=== PATIENT | female | born 1960 | race Caucasian/White ===

== ENCOUNTER 2022-08-18 12:38 | Emergency (ER) | payer OTHER, SELFPAY ==
[2022-08-18 12:40] VITALS: BP 115/75; PULSE 85; RESP 18; TEMP 36.7; O2SAT 94; BMI 43.0
--- NOTE | 2022-08-18 13:13 | ED.NURSE ---
this marketing underwriter chaperoned MD as looking at the buttocks area of concern. no drainage noted from site and small hard area that is tender to patient.
--- NOTE | 2022-08-18 13:40 | ED_ITS ---
HPI - Skin/Abscess/Foreign Bdy General Date Seen: 08/18/22 Chief complaint: Skin/Abscess/Foreign Body Stated complaint: Abces on buttocks Time Seen by Provider: 08/18/22 12:44 Source: patient Mode of arrival: wheelchair Limitations: no limitations History of Present Illness HPI narrative: Patient is a really nice 61-year-old female who presents here with a spot on her left buttock, that is draining a little bit of blood. Had this now for approximately a week, she denies any fevers chills, there is no communication as far she knows with her rectal area. She is wondering if she might need antibiotics. She is COVID positive approximately a week ago her entire family came down with a, she just want her blood oxygen also checked. She otherwise feels fine with this with no problems with the chest pain shortness of breath or other issues. She is confined to wheelchair secondary to a musculoskeletal arthritis, in need for a joint replacements. Related Data Home Medications Medication Instructions Recorded Confirmed citalopram 40 mg tablet mg 08/18/22 trazodone 50 mg tablet mg 08/18/22 Allergies Allergy/AdvReac Type Severity Reaction Status Date / Time tramadol Allergy Mild itch Verified 08/18/22 12:47 Review of Systems Status of ROS: Reports: 6 or more systems reviewed and unremarkable except as noted in History and below [facility] Medical History CAD (coronary artery disease) Diabetes 1.5, managed as type 2 Fibromyalgia Osteoarthritis Social History Smoking Status: Current every day smoker What tobacco products do you use: cigarettes Smoking packs per day: 1 Smoking cigarettes per day: 20.0 Years smoked: 46 Smoking pack-years: 46.00 Do you use any of these nicotine containing products: None Second hand tobacco smoke exposure: No How often do you have a drink containing alcohol: never How often do you have six or more drinks on one occasion: Never AUDIT-C Alcohol total score: 0 Non-prescribed substance use: denies use service: No Exam Narrative: Exam Narrative: Very nice lady in no apparent distress, her vital signs are normal here. With the nurse Boom present we were able to get her to go on her right side, approximately 6 cm from her rectal or/anus there is an area of of furuncle, that is not draining any fluid. But there is a hole within it. I was unable to palpate any significant abscess with this. Around it, with no track going back to her rectal area. Const: Vital Signs, click to edit/add: Vital Signs - 24 hr 08/18/22 12:40 Temperature 98.1 F Pulse Rate [Left P ulse Oximeter] 85 Respiratory Rate 18 Blood Pressure [Le ft Upper Arm] 115/75 Pulse Oximetry 94 Oxygen Delivery Me thod Room Air Documenting provider has reviewed patient's vital signs: yes Course Vital Signs Vital signs: Initial Vital Signs Temperature 98.1 F 08/18/22 12:40 Temperature Source Temporal Artery Scan 08/18/22 12:40 Pulse Rate 85 08/18/22 12:40 Pulse Rhythm 08/18/22 12:40 Respiratory Rate 18 08/18/22 12:40 Blood Pressure 115/75 08/18/22 12:40 Blood Pressure Mean 88 08/18/22 12:40 Blood Pressure Position Sitting 08/18/22 12:40 Pulse Oximetry 94 08/18/22 12:40 Oxygen Delivery Method 08/18/22 12:40 Vital Signs Temperature 98.1 F 08/18/22 12:40 Pulse Rate 85 08/18/22 12:40 Respiratory Rate 18 08/18/22 12:40 Blood Pressure 115/75 08/18/22 12:40 Pulse Oximetry 94 08/18/22 12:40 Oxygen Delivery Method 08/18/22 12:40 Temperature 98.1 F 08/18/22 12:40 Pulse Rate 85 08/18/22 12:40 Respiratory Rate 18 08/18/22 12:40 Blood Pressure 115/75 08/18/22 12:40 Pulse Oximetry 94 08/18/22 12:40 Oxygen Delivery Method 08/18/22 12:40 MDM - Skin/Abscess/Foreign Bdy MDM Narrative Medical decision making narrative: I reviewed with the patient I do not think this is a perirectal abscess, with no communication I think this is a furuncle, there appears to be no collection of abscess and appears not to be cellulitic. I think we will however start her on Augmentin, twice daily for this, I will ask her to put some bacitracin on this and do some Sitz baths also. In regards to her COVID she seems to be doing quite well with this. But she is slightly nauseous and we will give her some Zofran. Differential Diagnosis Differential diagnosis: Likely abscess of skin or subcutaneous tissue, cellulitis, impetigo and contact dermatitis Medical Records Attestation: I reviewed the patient's medical records. Discharge Plan Discharge Clinical Impression: COVID-19, Furuncle, Nausea Patient Disposition: Home, Self-Care Condition: Stable Instructions: Abscess Follow-up (ED) Additional Instructions: I discussed with her that her COVID status is good with an excellent oxygen saturation, she does have a little furuncle on the left buttocks, there seems to be no evidence of abscess here, and there is some mild drainage. I think a reasonable approach here would be antibiotics, along with some nausea medicine. Sitz baths and warm water would be appropriate 3 times a day for the next little while. Report back here if increasing size of this area, anything that is plan supple, but at the present just follow this. Prescriptions given via [employer]. Augmentin 875 mg po bid and Zofran 4 mg Q8h prn Prescriptions: No Action citalopram 40 mg tablet Label Comments: TAKE 1 TABLET BY MOUTH DAILY trazodone 50 mg tablet Label Comments: TAKE 1 TO 2 TABLETS BY MOUTH DAILY AT BEDTIME Follow Up/Referrals: Provider,Not a Local [Primary Care Provider] - Stand Alone Forms: [employer] Info Instructions
== END 2022-08-18 13:57 | disposition home or self-care (01) ==
PROVIDERS: Emergency Provider Family Medicine
DX: L02.32 Furuncle of buttock (principal); U07.1 COVID-19
CPT/HCPCS: 99283

== ENCOUNTER 2022-08-22 11:38 | Emergency (ER) | payer OTHER, SELFPAY ==
[2022-08-22 12:25] VITALS: BP 133/82; PULSE 83; RESP 18; TEMP 36.7; O2SAT 92; BMI 40.2
--- NOTE | 2022-08-22 14:06 | ED_ITS ---
HPI - General Adult General Chief complaint: GI Bleed Stated complaint: Rectal bleeding/nausea/weakness Time Seen by Provider: 08/22/22 12:50 Source: patient Mode of arrival: ambulatory Limitations: no limitations History of Present Illness HPI narrative: 61-year-old female coming in today concerned about rectal bleeding. She states that for the last 4 days she has had bright red blood per rectum on and off thro ughout the day. She states that her rectum is leaking blood even when she does not go to the bathroom. She has blood through her pants. She describes it as a significant amount of blood. She denies feeling dizzy or lightheaded. No chest pain or shortness of breath. She is complaining of rectal pain. Pain is constant, nothing makes it better or worse. She denies any fevers or chills. No nausea or vomiting. Related Data Home Medications Medication Instructions Recorded Confirmed citalopram 40 mg tablet mg 08/18/22 trazodone 50 mg tablet mg 08/18/22 Previous Rx's Medication Instructions Recorded Keflex 1 tab PO TID 7 days #21 tabs 08/22/22 cephalexin 500 mg capsule 500 mg PO TID 7 days #21 caps 08/22/22 Allergies Allergy/AdvReac Type Severity Reaction Status Date / Time tramadol Allergy Mild itch Verified 08/18/22 12:47 Review of Systems Status of ROS: Reports: 10 or more systems reviewed and unremarkable except as noted in History and below [facility] Medical History CAD (coronary artery disease) Diabetes 1.5, managed as type 2 Fibromyalgia Osteoarthritis Social History Smoking Status: Current every day smoker What tobacco products do you use: cigarettes Smoking packs per day: 1 Smoking cigarettes per day: 20.0 Years smoked: 46 Smoking pack-years: 46.00 Do you use any of these nicotine containing products: None Second hand tobacco smoke exposure: No How often do you have a drink containing alcohol: never How often do you have six or more drinks on one occasion: Never AUDIT-C Alcohol total score: 0 Non-prescribed substance use: denies use service: No Exam Narrative: Exam Narrative: Obese, well-developed patient in no acute distress. Alert and oriented. Answers questions appropriately. Mood and affect are appropriate. Thoughts are goal oriented and rational. No tangential or magical thinking noted. Patient speaks in full sentences without needing to catch her breath. HEENT: Normocephalic atraumatic. Pupils are equally round reactive to light. Extraocular muscles are intact. Conjunctivae are moist without any icterus noted. Cardiovascular: Heart is regular rate and rhythm S1 and S2 are present without any murmurs. Lungs: Clear to auscultation bilaterally no wheezes rhonchi or rales are appreciated. Patient takes deep breaths without any discomfort. Abdomen: Protuberant and soft, nontender with normal bowel sounds. Rectal exam: Patient has a draining area of the left perirectal space that is draining sanguinous pus. The area has a central fluctuance with surrounding induration. I do not see any drainage extending to the anus. There is no tenderness at the anus. The perirectal abscess does not appear to extend to the inguinal canal. Const: Vital Signs, click to edit/add: Vital Signs - 24 hr 08/22/22 12:25 Temperature 98.0 F Pulse Rate [Right Pulse Oximeter] 83 Respiratory Rate 18 Blood Pressure [Ri ght Upper Arm] 133/82 Pulse Oximetry 92 Oxygen Delivery Me thod Room Air Course Course Hospital Course: The area was cleaned and anesthetized with lidocaine an 11 blade was used to puncture the area that was draining. Approximately 30 mL of sanguinous purulent drainage drained out. A Q-tip was used to break any pockets. The space was then packed. She tolerated the procedure well. I did consult with afterwards, she recommended some postop care and a surgical follow-up. Vital Signs Vital signs: Initial Vital Signs Temperature 98.0 F 08/22/22 12:25 Temperature Source Temporal Artery Scan 08/22/22 12:25 Pulse Rate 83 08/22/22 12:25 Respiratory Rate 18 08/22/22 12:25 Blood Pressure 133/82 08/22/22 12:25 Blood Pressure Mean 99 08/22/22 12:25 Blood Pressure Position Sitting 08/22/22 12:25 Pulse Oximetry 92 08/22/22 12:25 Oxygen Delivery Method 08/22/22 12:25 Vital Signs Temperature 98.0 F 08/22/22 12:25 Pulse Rate 83 08/22/22 12:25 Respiratory Rate 18 08/22/22 12:25 Blood Pressure 133/82 08/22/22 12:25 Pulse Oximetry 92 08/22/22 12:25 Oxygen Delivery Method 08/22/22 12:25 Temperature 98.0 F 08/22/22 12:25 Pulse Rate 83 08/22/22 12:25 Respiratory Rate 18 08/22/22 12:25 Blood Pressure 133/82 08/22/22 12:25 Pulse Oximetry 92 08/22/22 12:25 Oxygen Delivery Method 08/22/22 12:25 Medical Decision Making MDM Narrative Medical decision making narrative: Perineal abscess status post I&D in the ER. We discussed soaking a Sitz bath removing the packing tomorrow. Then soaking up to 3 times a day as needed. Patient will be placed on Keflex for the next week. She will have an appointment with surgery next Saturday. Return for to the ER for any complications. Medical Records Medical records reviewed: Yes I reviewed the patient's medical records Discharge Plan Discharge Clinical Impression: Abscess, perirectal Patient Disposition: Home, Self-Care Condition: Improved Additional Instructions: Okay to soak in a Sitz bath tomorrow and remove packing. No need to repack it. Take all antibiotics as prescribed. Follow-up with surgeon next Saturday. Okay to take ibuprofen or Tylenol as needed for discomfort. Prescriptions: New Keflex 500 mg 1 tab PO TID 7 Days Qty: 21 0RF cephalexin 500 mg capsule 500 mg PO TID 7 Days Qty: 21 0RF No Action citalopram 40 mg tablet Label Comments: TAKE 1 TABLET BY MOUTH DAILY trazodone 50 mg tablet Label Comments: TAKE 1 TO 2 TABLETS BY MOUTH DAILY AT BEDTIME Follow Up/Referrals: Provider,Not a Local [Primary Care Provider] - Stand Alone Forms: [employer] Info Instructions
--- NOTE | 2022-08-22 14:52 | PM.GSCN ---
History of Present Illness Consult details Date Seen: 08/22/22 Consult date: 08/22/22 Narrative: Patient presented to the emergency department with a four-day history of irritation at her buttock and bleeding. Initially she thought the bleeding was coming from her anus. She describes it is initially a significant amount of blood. The area is tender to the touch, but no significant pain. She has never had anything like this before. She denies any fevers or chills. She does have a history of type 2 diabetes and does not check her sugars regularly. She is not currently on insulin. She is an everyday smoker. Review of Systems Status of ROS: Reports: 10 or more systems reviewed and unremarkable except as noted in History and below [facility] Medical History CAD (coronary artery disease) Diabetes 1.5, managed as type 2 Fibromyalgia Osteoarthritis Social History Smoking Status: Current every day smoker What tobacco products do you use: cigarettes Smoking packs per day: 1 Smoking cigarettes per day: 20.0 Years smoked: 46 Smoking pack-years: 46.00 Do you use any of these nicotine containing products: None Second hand tobacco smoke exposure: No How often do you have a drink containing alcohol: never How often do you have six or more drinks on one occasion: Never AUDIT-C Alcohol total score: 0 Non-prescribed substance use: denies use service: No Meds Home Medications and Allergies Home Medications Medication Instructions Recorded Confirmed Type citalopram 40 mg tablet mg 08/18/22 History trazodone 50 mg tablet mg 08/18/22 History Allergies Allergy/AdvReac Type Severity Reaction Status Date / Time tramadol Allergy Mild itch Verified 08/18/22 12:47 Exam Narrative: Exam Narrative: General: Alert and oriented, no acute distress. Nontoxic. Respiratory: Equal breath sounds bilaterally, maintained on room air CV: Regular rhythm rate, well perfused Genitourinary: Left perianal buttock abscess with 1 cm incision and packing in place. No significant induration, some mild surrounding erythema. Nontender to palpation. No undrained fluid pockets appreciated. Const: Vital Signs, click to edit/add: Vital Signs - 24 hr 08/22/22 12:25 Temperature 98.0 F Pulse Rate [Right Pulse Oximeter] 83 Respiratory Rate 18 Blood Pressure [Ri ght Upper Arm] 133/82 Pulse Oximetry 92 Oxygen Delivery Me thod Room Air Results Labs Labs: All other labs normal. Assessment and Plan Assessment and plan (1) Perianal abscess: Status: Acute Plan Patient is a 61-year-old female with evidence of a drained perianal abscess. There does appear to have been adequate drainage at the bedside with appropriate packing in place. Recommend that the patient soak in a bathtub and remove the packing tomorrow. No need to repack. Recommend that she continue with Sitz baths t.i.d. for comfort. She will be prescribed a 7 day course of Keflex, which is reasonable given her history of type 2 diabetes and the surrounding erythema present. I also recommended to the patient that she check her sugars 3 times daily and maintain blood sugars less than 150. Will plan to follow up with the patient next week in clinic to assess for adequate healing. She was instructed to call the clinic or be seen in the emergency department should she develop any increasing pain, fever chills.
--- NOTE | 2022-08-22 19:58 | ED.NURSE ---
entered pt chart - pt called for antibiotic rx question, questions answered.
== END 2022-08-22 17:02 | disposition home or self-care (01) ==
LOC: ED 14:41
PROVIDERS: Emergency Provider Family Medicine
DX: K61.1 Rectal abscess (principal)
CPT/HCPCS: 10060; 99282; 99284

== ENCOUNTER 2023-05-27 13:02 | Emergency (ER) | payer OTHER, SELFPAY ==
[2023-05-27 13:27] VITALS: BP 118/69; PULSE 93; RESP 18; TEMP 36.5; O2SAT 98; BMI 45.7
--- NOTE | 2023-05-27 16:50 | ED_ITS ---
HPI - General Adult General Date Seen: 05/27/23 Chief complaint: Abdominal Pain Stated complaint: Upper abdominal/back pain Time Seen by Provider: 05/27/23 16:32 Source: patient Mode of arrival: wheelchair Limitations: no limitations History of Present Illness HPI narrative: Patient is a 62-year-old woman with underlying diabetes, recently started on Trulicity. For the past 8 days she says she has been having upper abdominal pain with radiation to both sides of the abdomen as well as to the back. She says this is mild arm less she eats, at which time it gets much more significant. She says she feels immediately full. She has not had any vomiting or diarrhea, she has had trouble with constipation lately but says that as long as she eats apples and broccoli she has been doing okay as far as that is concerned. She denies fever. She has not had difficulty breathing or cough. She denies urinary symptoms. She has no history of gastritis or peptic ulcer disease, does not take significant nonsteroidals and does not drink. Her dose of Trulicity was increased a couple of weeks ago and she is concerned that the Trulicity may be causing these symptoms. She notes that she did develop some nausea and constipation when she 1st started taking Trulicity and she has read the side effects to include abdominal pain and pancreatitis. She is status post appendectomy, denies other surgeries. She does smoke cigarettes. Here today with her Related Data Home Medications Medication Instructions Recorded Confirmed citalopram 40 mg tablet mg 08/18/22 05/16/23 trazodone 50 mg tablet mg 08/18/22 05/16/23 dulaglutide 1.5 mg/0.5 mL 1.5 mg subcut QWEEK 05/09/23 05/16/23 subcutaneous pen injector (Trulicity) glipizide 10 mg tablet 10 mg PO QDAY 05/09/23 05/16/23 Allergies Allergy/AdvReac Type Severity Reaction Status Date / Time tramadol Allergy Mild itch Verified 05/27/23 17:41 Review of Systems Status of ROS: Reports: 10 or more systems reviewed and unremarkable except as noted in History and below [facility] Medical History CAD (coronary artery disease) ?I25.10 - Atherosclerotic heart disease of [place] coronary artery without angina pectoris (ICD-10) Fibromyalgia ?M79.7 - Fibromyalgia (ICD-10) Osteoarthritis ?M19.90 - Unspecified osteoarthritis, unspecified site (ICD-10) Diabetes 1.5, managed as type 2 ?E13.9 - Other specified diabetes mellitus without complications (ICD-10) Social History Smoking Status: Current every day smoker What tobacco products do you use: cigarettes Smoking packs per day: 1 Smoking cigarettes per day: 20.0 Years smoked: 46 Smoking pack-years: 46.00 Do you use any of these nicotine containing products: None Second hand tobacco smoke exposure: No How often do you have a drink containing alcohol: never How often do you have six or more drinks on one occasion: Never AUDIT-C Alcohol total score: 0 Non-prescribed substance use: denies use service: No Exam Narrative: Exam Narrative: Vital signs as noted above. In general, an alert, well-appearing patient. Head: Normocephalic, atraumatic. Eyes: Pupils are equal reactive. Extraocular movements are full. Conjunctivae are normal. ENT: Mucous membranes are moist. Throat is normal. Neck: Supple without lymphadenopathy. Heart: Regular rate and rhythm. No murmur or rub. Lungs: Clear bilaterally. No increased work of breathing, crackles or wheezes. Abdomen: Soft and nondistended. Mild upper abdominal tenderness without rebound guarding or rigidity. Negative Rivera's. Obese. Extremities: Well perfused. No edema. No calf tenderness. Pulses intact. Neurologic: Patient is alert and oriented to person and place. Speech is fluent. Face is symmetric. Moves all extremities equally. Affect: Normal. Skin: Warm and dry. Well perfused. Const: Vital Signs, click to edit/add: Vital Signs - 24 hr 05/27/23 13:27 05/27/23 17:10 05/27/23 18:51 Temperature 97.7 F Pulse Rate [Right Pulse Oximeter] 93 84 89 Respiratory Rate 18 Blood Pressure [Ri ght Upper Arm] 118/69 126/68 119/53 L Pulse Oximetry 98 94 94 Oxygen Delivery Me thod Room Air Room Air Room Air Documenting provider has reviewed patient's vital signs: yes Course Course Hospital Course: I looked with the bedside ultrasound, the gallbladder wall appears normal, I do not see obvious stones. She does not have tenderness over her gallbladder specifically. EKG and labs are pending. She declines the need for anything for pain or nausea. Diagnostic considerations include peptic ulcer disease, gastritis, pancreatitis, cholecystitis, biliary colic, gastroparesis among others. Labs are relatively unremarkable. White blood cell count is mildly elevated at 13 and CRP is mildly elevated at 5.2 but lactate is normal, hemoglobin is 16.3. Electrolytes are within normal limits, LFTs normal, lipase notably normal at 154. Troponin was 0, EKG by my review showed normal sinus rhythm, ventricular rate of 82 beats per minute without acute ST segment changes or other significant findings. CT scan by my review showed a little inflammation near the head of the pancreas, but lipase again is normal, with symptoms for a little over a week. Radiology read this as follows:IMPRESSION: Subtle periappendiceal inflammatory stranding about the pancreatic head/uncinate process. And 2nd portion of the duodenum. Differential includes acute uncomplicated pancreatitis or possible duodenitis. Recommend correlation with lipase. No drainable fluid collections. Given this, I think the most likely diagnosis is duodenitis or peptic ulcer disease. I have recommended that we try a course of omeprazole, primary care follow-up in the coming week for re-evaluation, and return to the ER for worsening such as severe pain, vomiting blood, black or bloody stools etc.. She is comfortable with that plan. I think pancreatitis is less likely given the normal lipase. Gastroparesis would be an additional consideration depending on how she responds to omeprazole. Vital Signs Vital signs: Initial Vital Signs Temperature 97.7 F 05/27/23 13:27 Temperature Source Temporal Artery Scan 05/27/23 13:27 Pulse Rate 93 05/27/23 13:27 Pulse Rhythm Regular 05/27/23 13:27 Pulse Strength 3+ Normal 05/27/23 13:27 Respiratory Rate 18 05/27/23 13:27 Blood Pressure 118/69 05/27/23 13:27 Blood Pressure Mean 85 05/27/23 13:27 Blood Pressure Position Sitting 05/27/23 13:27 Pulse Oximetry 98 05/27/23 13:27 Oxygen Delivery Method Room Air 05/27/23 13:27 Vital Signs Temperature 97.7 F 05/27/23 13:27 Pulse Rate 93 05/27/23 13:27 Respiratory Rate 18 05/27/23 13:27 Blood Pressure 118/69 05/27/23 13:27 Pulse Oximetry 98 05/27/23 13:27 Oxygen Delivery Method Room Air 05/27/23 13:27 Temperature 97.7 F 05/27/23 13:27 Pulse Rate 89 05/27/23 18:51 Respiratory Rate 18 05/27/23 13:27 Blood Pressure 119/53 L 05/27/23 18:51 Pulse Oximetry 94 05/27/23 18:51 Oxygen Delivery Method Room Air 05/27/23 18:51 Medical Decision Making Lab Data Labs: Lab Results 05/27/23 Range/Units 17:05 WBC 13.15 H (4.50-11.00) K/uL RBC 5.33 H (4.00-5.20) m/uL Hgb 16.3 H (12.0-16.0) gm/dL Hct 47.6 (33.0-51.0) % MCV 89 (80-100) fL MCH 31 (26-34) pg MCHC 34 (32-36) gm/dL RDW Coeff of Sudheer 12.8 (11.5-15.5) % Plt Count 272 (140-440) K/uL Neut % (Auto) 68.8 (42.0-72.0) % Lymph % (Auto) 22.7 (20-44) % [place] % (Auto) 6.2 (0.0-11.0) % Eos % (Auto) 1.7 (0.0-7.0) % Baso % (Auto) 0.2 (0.0-3.0) % Neut # (Auto) 9.00 H (1.7-7.0) K/uL Lymph # (Auto) 3.00 H (0.90-2.90) K/uL [place] # (Auto) 0.80 (0.00-0.90) K/UL Eos # (Auto) 0.20 (0.00-0.50) K/uL Baso # (Auto) 0.00 (0.00-0.30) K/uL Sodium 137 (135-149) mmol/L Potassium 3.6 (3.6-5.1) mmol/L Chloride 103 (96-114) mmol/L Carbon Dioxide 25 (20-32) mmol/L BUN 8 (7-30) mg/dL Creatinine 0.6 (0.5-1.5) mg/dL Estimated Creat Clear 45.54 Estimated GFR 101 ml/min Glucose 87 (60-115) mg/dL Lactate 0.9 (0.5-1.9) mmol/L Calcium 9.3 (8.4-10.6) mg/dL Total Bilirubin 0.5 (0.1-1.5) mg/dL Direct Bilirubin 0.1 (0.0-0.5) mg/dL AST 19 (12-35) U/L ALT 20 (4-35) U/L Alkaline Phosphatase 101 (40-150) U/L C-Reactive Protein 5.2 H (0.5-1.0) mg/dL Total Protein 7.9 (6.0-8.3) g/dL Albumin 4.3 (3.3-5.0) g/dL Lipase 154 (23-300) U/L POC Troponin I 0.00 L (0.01-0.04) ng/ml Discharge Plan Discharge Clinical Impression: Duodenitis Patient Disposition: Home, Self-Care Condition: Stable Instructions: Duodenitis (ED) Additional Instructions: Omeprazole 40 mg daily. Primary care follow-up within the next week or so for recheck. If you have acute worsening such as severe pain, vomiting blood, black or bloody stools, return to the emergency department right away. Prescriptions: No Action glipizide 10 mg tablet 10 mg PO QDAY Trulicity 1.5 mg/0.5 mL pen injector 1.5 mg subcut QWEEK citalopram 40 mg tablet Patient Comments: TAKE 1 TABLET BY MOUTH DAILY trazodone 50 mg tablet Patient Comments: TAKE 1 TO 2 TABLETS BY MOUTH DAILY AT BEDTIME Follow Up/Referrals: Provider,Not a Local [Primary Care Provider] - Stand Alone Forms: [employer] Info Instructions
--- NOTE | 2023-05-27 16:50 | CRLHL7_ITS ---
For Patients: As a result of the Century Cures Act, medical imaging exams and procedure reports are released immediately into your electronic medical record. You may view this report before your referring provider. If you have questions, please contact your health care provider. INDICATION: Upper abdominal pain. TECHNIQUE: CT abdomen and pelvis acquired with 122 cc Isovue 370 IV contrast. COMPARISON: None. FINDINGS: Lower chest: Scattered atelectasis. Liver: Unremarkable. Normal in size and attenuation. No suspicious masses. Gallbladder and bile ducts: Unremarkable. No stones or inflammation. No biliary dilatation. Pancreas: Fatty atrophy. Subtle periappendiceal inflammatory stranding about the pancreatic head and uncinate process. Spleen: Unremarkable. Normal in size. No masses. Adrenal glands: Unremarkable. No nodules. Kidneys: Unremarkable. No suspicious masses, stones, or hydronephrosis. GI tract: Colonic diverticulosis. No bowel obstruction. Appendectomy Vasculature: Moderate aortoiliac arterial calcifications. Abdominal aorta is normal in caliber. Mesenteric arteries are patent. Lymph nodes: No lymphadenopathy. Peritoneum/Abdominal Wall: Small fat containing umbilical hernia. No sign of mass or infiltration. No free air or significant free fluid. Pelvis: Unremarkable. Bones: Unremarkable for age. IMPRESSION: Subtle periappendiceal inflammatory stranding about the pancreatic head/uncinate process. And 2nd portion of the duodenum. Differential includes acute uncomplicated pancreatitis or possible duodenitis. Recommend correlation with lipase. No drainable fluid collections. Otherwise, no acute intra-abdominal/pelvic abnormality. Please note that all CT scans at this facility use dose modulation, iterative reconstruction, and/or weight-based dosing when appropriate to reduce radiation dose to as low as reasonably achievable. Dictated by Sung Siu MD @ 05/27/2023 6:57:01 PM (Electronically Signed)
[2023-05-27 17:10] VITALS: BP 126/68; PULSE 84; O2SAT 94
[2023-05-27 17:17] LABS: Lactate* 0.9 mmol/L (0.5-1.9)
[2023-05-27 17:18] LABS: Basophils Percent Auto 0.2 % (0.0-3.0); Eosinophils Percent Auto 1.7 % (0.0-7.0); Hematocrit 47.6 % (33.0-51.0); Hemoglobin* 16.3 gm/dL (12.0-16.0); Immature Granulocytes Pct Auto 0.4 %; Lymphocytes Percent Auto 22.7 % (20-44); Mean Corpuscular HGB Conc 34 gm/dL (32-36); Mean Corpuscular Hemoglobin 31 pg (26-34); Mean Corpuscular Volume 89 fL (80-100); Monocytes Percent Auto 6.2 % (0.0-11.0); Neutrophils Percent Auto 68.8 % (42.0-72.0); Platelet Count* 272 K/uL (140-440); RDW Coefficient of Variation % 12.8 % (11.5-15.5); Red Blood Count 5.33 m/uL (4.00-5.20); White Blood Count* 13.15 K/uL (4.50-11.00)
[2023-05-27 17:30] LABS: Slide Review Reflex No
[2023-05-27 17:33] LABS: Albumin* 4.3 g/dL (3.3-5.0); Chloride* 103 mmol/L (96-114); Sodium* 137 mmol/L (135-149)
[2023-05-27 17:34] LABS: Potassium* 3.6 mmol/L (3.6-5.1)
[2023-05-27 17:35] LABS: Creatinine* 0.6 mg/dL (0.5-1.5); Est. Creatinine Clearance* 45.54; Estimated Glomerular Filt Rate 101 ml/min
[2023-05-27 17:36] LABS: Alanine Aminotransferase* 20 U/L (4-35); Alkaline Phosphatase* 101 U/L (40-150); Aspartate Amino Transferase* 19 U/L (12-35); Bilirubin Direct* 0.1 mg/dL (0.0-0.5); Bilirubin Total* 0.5 mg/dL (0.1-1.5); Blood Urea Nitrogen* 8 mg/dL (7-30); Carbon Dioxide* 25 mmol/L (20-32); Glucose* 87 mg/dL (60-115); Lipase* 154 U/L (23-300); Total Protein* 7.9 g/dL (6.0-8.3)
[2023-05-27 17:37] LABS: Calcium* 9.3 mg/dL (8.4-10.6)
[2023-05-27 17:39] LABS: C Reactive Protein* 5.2 mg/dL (0.5-1.0)
[2023-05-27 18:51] VITALS: BP 119/53; PULSE 89; O2SAT 94
== END 2023-05-27 19:51 | disposition home or self-care (01) ==
PROVIDERS: Emergency Provider Emergency Medicine
DX: K29.80 Duodenitis without bleeding (principal)
CPT/HCPCS: 36415; 74177; 80048; 80076; 83605; 83690; 84484; 85025; 86140; 93005; 99283; 99284; 99285; Q9967

== ENCOUNTER 2024-08-03 12:03 | Emergency (ER) | payer OTHER, SELFPAY ==
[2024-08-03 12:07] VITALS: BP 134/75; PULSE 95; RESP 18; TEMP 36.9; O2SAT 96; BMI 44.3
--- NOTE | 2024-08-03 12:24 | CRLHL7_ITS ---
For Patients: As a result of the Century Cures Act, medical imaging exams and procedure reports are released immediately into your electronic medical record. You may view this report before your referring provider. If you have questions, please contact your health care provider. Indication: Rectal pain with bowel movement Technique: CT Abdomen/Pelvis W/ 137CC ISOVUE-370 Please note that all CT scans at this facility use dose modulation, iterative reconstruction, and/or weight-based dosing when appropriate to reduce radiation dose to as low as reasonably achievable. Comparison: 05/27/2023 Findings: There is a circumscribed collection of fluid and air in the perianal space measuring 3 cm, best appreciated on the additional more inferior axial images of the perianal soft tissues. Mild sigmoid diverticulosis. No diverticulitis. No evidence of bowel obstruction. The appendix is absent. Fat filled umbilical hernia measures 3.6 cm. Bladder normal. Unremarkable uterus and ovaries. Atherosclerotic changes. Adrenal glands are normal. Normal kidneys. Spleen normal. Pancreatic atrophy. Fatty liver. Gallbladder normal. Lung bases clear. Multilevel degenerative disc disease and facet degeneration rightward curvature of the lumbar spine. Degenerative joint disease both hips. The liver measures 19.2 cm. Impression: 3 cm perianal abscess. Sigmoid diverticulosis. No diverticulitis. Hepatomegaly and hepatic steatosis. Please note that all CT scans at this facility use dose modulation, iterative reconstruction, and/or weight-based dosing when appropriate to reduce radiation dose to as low as reasonably achievable. Dictated by Edil Lofton MD @ 08/03/2024 1:21:30 PM (Electronically Signed)
--- NOTE | 2024-08-03 12:26 | ED_ITS ---
HPI - General Adult General Chief complaint: Urogenital Problems, Female Stated complaint: Abdominal pain, gastric pressure Time Seen by Provider: 08/03/24 12:19 History of Present Illness HPI narrative: Patient is a 63-year-old woman with history of perirectal abscess who comes in after approximately 4-5 days of diarrhea and fever with pain anterior to her anus. She has had no rectal discharge. She has no dysuria. The fever and diarrhea has resolved she has no further abdominal pain. She previously had a her perirectal abscess lanced a number of years ago. Patient is in a wheelchair secondary to severe osteoarthritis. She takes no anticoagulants or antiplatelet agents. Patient now feels like her symptoms have resolved with the exception of the excruciating pain as described above. Related Data Home Medications ?Medication ?Instructions ?Recorded ?Confirmed citalopram 40 mg tablet mg 08/18/22 12/10/23 trazodone 50 mg tablet mg 08/18/22 12/10/23 dulaglutide 1.5 mg/0.5 mL 1.5 mg subcut QWEEK 05/09/23 12/10/23 subcutaneous pen injector (Trulicity) glipizide 10 mg tablet 10 mg PO QDAY 05/09/23 12/10/23 cetirizine 10 mg tablet 10 mg PO DAILY 08/03/24 08/03/24 glipizide 5 mg tablet, extended PO 08/03/24 release 24 hr (Glucotrol XL) rosuvastatin 40 mg tablet 40 mg PO DAILY 08/03/24 08/03/24 Allergies Allergy/AdvReac Type Severity Reaction Status Date / Time tramadol Allergy Mild itch Verified 08/03/24 12:13 Review of Systems Status of ROS: Reports: 10 or more systems reviewed and unremarkable except as noted in History and below [facility] Medical History CAD (coronary artery disease) ?I25.10 - Atherosclerotic heart disease of craig coronary artery without angina pectoris (ICD-10) Fibromyalgia ?M79.7 - Fibromyalgia (ICD-10) Osteoarthritis ?M19.90 - Unspecified osteoarthritis, unspecified site (ICD-10) Diabetes 1.5, managed as type 2 ?E13.9 - Other specified diabetes mellitus without complications (ICD-10) Surgical History S/P ?Z98.891 - History of uterine scar from previous surgery (ICD-10) S/P appendectomy ?Z90.49 - Acquired absence of other specified parts of digestive tract (ICD- 10) Social History Smoking Status: Current every day smoker What tobacco products do you use: cigarettes Smoking packs per day: 1 Smoking cigarettes per day: 20.0 Years smoked: 46 Smoking pack-years: 46.00 Do you use any of these nicotine containing products: None Second hand tobacco smoke exposure: No How often do you have a drink containing alcohol: never How often do you have six or more drinks on one occasion: Never AUDIT-C Alcohol total score: 0 Non-prescribed substance use: denies use service: No Exam Narrative: Exam Narrative: EXAM GENERAL: Patient appears comfortable and well. Patient is overweight. EYES: No scleral icterus. LYMPH: No supraclavicular or cervical lymphadenopathy. SKIN: Visible skin seen during exam normal or with benign process only. EXT: No dependent lower extremity pedal edema. HEART: Regular rate and rhythm with no murmurs, rubs, or gallops. LUNGS: Clear to auscultation bilaterally with no crackles or wheezes. ABD: Soft, non tender, non distended. PSYCH: Good eye contact, speech is not pressured. Rectal exam performed tenderness and diffuse fullness although flat in the anterior aspect of her anus. Const: Vital Signs, click to edit/add: Vital Signs - 24 hr 08/03/24 12:07 Temperature 98.5 F Pulse Rate [Right Pulse Oximeter] 95 Respiratory Rate 18 Blood Pressure [Ri ght Upper Arm] 134/75 Pulse Oximetry 96 Oxygen Delivery Me thod Room Air Course Course ED Course: CBC CMP UA CT abdomen pelvis ordered. Vital Signs Vital signs: Initial Vital Signs Temperature 98.5 F 08/03/24 12:07 Temperature Source Temporal Artery Scan 08/03/24 12:07 Pulse Rate 95 08/03/24 12:07 Pulse Rhythm Regular 08/03/24 12:07 Respiratory Rate 18 08/03/24 12:07 Blood Pressure 134/75 08/03/24 12:07 Blood Pressure Mean 94 08/03/24 12:07 Blood Pressure Position Sitting 08/03/24 12:07 Pulse Oximetry 96 08/03/24 12:07 Oxygen Delivery Method Room Air 08/03/24 12:07 Vital Signs Temperature 98.5 F 08/03/24 12:07 Pulse Rate 95 08/03/24 12:07 Respiratory Rate 18 08/03/24 12:07 Blood Pressure 134/75 08/03/24 12:07 Pulse Oximetry 96 08/03/24 12:07 Oxygen Delivery Method Room Air 08/03/24 12:07 Temperature 98.5 F 08/03/24 12:07 Pulse Rate 95 08/03/24 12:07 Respiratory Rate 18 08/03/24 12:07 Blood Pressure 134/75 08/03/24 12:07 Pulse Oximetry 96 08/03/24 12:07 Oxygen Delivery Method Room Air 08/03/24 12:07 Medical Decision Making MDM Narrative Medical decision making narrative: CT abdomen pelvis shows a 3 mm perianal abscess. She does have leukocytosis but no other significant findings UA still pending. Surgical consultation requested. Surgery was able to drain the abscess. Patient tolerated procedure well. At this time patient will be discharged home on Augmentin stool softeners rest and fluids with General surgery follow-up. Lab Data Labs: Lab Results 08/03/24 08/03/24 08/03/24 Range/Units 12:35 12:41 13:18 WBC 12.88 H (4.50-11.00) K/uL RBC 5.19 (4.00-5.20) m/uL Hgb 15.9 (12.0-16.0) gm/dL Hct 46.6 (33.0-51.0) % MCV 90 (80-100) fL MCH 31 (26-34) pg MCHC 34 (32-36) gm/dL RDW Coeff of Sudheer 12.0 (11.5-15.5) % Plt Count 272 (140-440) K/uL Neut % (Auto) 72.2 H (42.0-72.0) % Lymph % (Auto) 19.5 L (20-44) % [place] % (Auto) 6.1 (0.0-11.0) % Eos % (Auto) 0.8 (0.0-7.0) % Baso % (Auto) 0.2 (0.0-3.0) % Neut # (Auto) 9.30 H (1.7-7.0) K/uL Lymph # (Auto) 2.50 (0.90-2.90) K/uL [place] # (Auto) 0.80 (0.00-0.90) K/UL Eos # (Auto) 0.10 (0.00-0.50) K/uL Baso # (Auto) 0.00 (0.00-0.30) K/uL Abs Immat Gran (auto) 0.20 (0.00-0.30) K/uL Imm/Tot Granulo (auto) 1.2 % Sodium 132 L (135-149) mmol/L Potassium 4.1 (3.6-5.1) mmol/L Chloride 100 (96-114) mmol/L Carbon Dioxide 25 (20-32) mmol/L Anion Gap 7 (7-15) mEq/L BUN 13 (7-30) mg/dL Creatinine 0.6 (0.5-1.5) mg/dL Estimated Creat Clear 47.01 Estimated GFR 100 ml/min Glucose 301 H (60-115) mg/dL Calcium 10.0 (8.4-10.6) mg/dL Total Bilirubin 0.4 (0.1-1.5) mg/dL AST 23 (12-35) U/L ALT 24 (4-35) U/L Alkaline Phosphatase 119 (40-150) U/L Total Protein 7.8 (6.0-8.3) g/dL Albumin 4.4 (3.3-5.0) g/dL Urine Color Yellow (Yellow) Urine Appearance Clear (Clear) Urine pH 5.5 (5.0-8.5) Ur Specific [place] 1.015 (1.000-1.030) Urine Protein Negative (Negative) Urine Glucose (UA) 2+ A (Negative) Urine Ketones Trace A (Negative) Urine Blood Negative (Negative) Urine Nitrite Negative (Negative) Urine Bilirubin Negative (Negative) Urine Urobilinogen 0.2 (0.2-1.0) Ur Leukocyte Esterase Negative (Negative) POC Creatinine 0.6 (0.6-1.3) mg/dl Discharge Plan Discharge Clinical Impression: Abscess, perianal Patient Disposition: Home, Self-Care Condition: Stable Instructions: Rectal Abscess (ED) Additional Instructions: Stool softening Sitz baths Augmentin as directed [place] as directed Follow-up with General surgery in 1 week. Activity Level: No Restrictions Discharge Diet: Regular Prescriptions: No Action glipizide 10 mg tablet 10 mg PO QDAY Trulicity 1.5 mg/0.5 mL pen injector 1.5 mg subcut QWEEK citalopram 40 mg tablet Patient Comments: TAKE 1 TABLET BY MOUTH DAILY trazodone 50 mg tablet Patient Comments: TAKE 1 TO 2 TABLETS BY MOUTH DAILY AT BEDTIME cetirizine 10 mg tablet 10 mg PO DAILY glipizide [Glucotrol XL] 5 mg tablet extended release 24hr PO rosuvastatin 40 mg tablet 40 mg PO DAILY Follow Up/Referrals: Provider,Not a Local [Primary Care Provider] - Stand Alone Forms: MyHealth Info Instructions
[2024-08-03 12:42] LABS: Creatinine, Point-of-Care* 0.6 mg/dl (0.6-1.3)
[2024-08-03 12:47] LABS: Basophils Percent Auto 0.2 % (0.0-3.0); Eosinophils Percent Auto 0.8 % (0.0-7.0); Hematocrit 46.6 % (33.0-51.0); Hemoglobin* 15.9 gm/dL (12.0-16.0); Immature Granulocytes Pct Auto 1.2 %; Lymphocytes Percent Auto 19.5 % (20-44); Mean Corpuscular HGB Conc 34 gm/dL (32-36); Mean Corpuscular Hemoglobin 31 pg (26-34); Mean Corpuscular Volume 90 fL (80-100); Monocytes Percent Auto 6.1 % (0.0-11.0); Neutrophils Percent Auto 72.2 % (42.0-72.0); Platelet Count* 272 K/uL (140-440); Red Blood Count 5.19 m/uL (4.00-5.20); White Blood Count* 12.88 K/uL (4.50-11.00)
--- OUTSIDE RECORDS SUMMARY | 2024-08-03 12:49 | XMS_ITS | Encounter Summary ---
Author Organization [employer] Address [address] [place] [address] Care Team Providers Care Medical Dermatologist Name Role Phone Miriam Montanez MD Primary Care Provider [phone] Reason for Visit * Reason Comments Prior Authorization For Medication semag lutide-weight management (WEGOVY) 0.25 MG/0.5ML pen injection Encounter Details Date Type Department Care Team (Late st Contact Info) Description 07/29/2024 Telephone [facility] [id number] [place] [address] [place] [address] [place], [place] [phone] Prior Authorization For Medication (semaglutide-weight management (WEGOVY) 0.25 MG/0.5ML pen injection) Social History Tobacco Use Types Packs/Day Years Used Date Smoking Tobacco: Every Day Cigarettes 1 48.3 Started: 04/28/1976 Smokeless Tobacco: Never Comments:Smoking History Pac ks/day: 1 pack Alcohol Use Standard Drinks/Week Comments No 0 (1 standard drink = 0.6 oz pur e alcohol) PHQ-2 Answer Date Recorded PHQ-2 Score 1 07/21/2024 Hunger Vital Sign Answer Date Recorded Within the past 12 months, y ou worried that your food would run out before you got the money to buy more. Never true 07/20/20 24 Within the past 12 months, t he food you bought just didn't last and you didn't have money to get more. Never true 07/20/2024 PRAPARE - Transportation Answer Date Re corded In the past 12 months, has l ack of transportation kept you from medical appointments or from getting medications? No 07/02 In the past 12 months, has l ack of transportation kept you from meetings, work, or from getting things needed for daily living? No 07/20/2024 Housing Stability Vital Sign Answer Bobby e Recorded In the last 12 months, was t here a time when you were not able to pay the mortgage or rent on time? No 07/20/2024 In the past 12 months, how m any times have you moved where you were living? 0 07/20/2024 At any time in the past 12 m [facility], were you homeless or living in a retirement (including now)? No 07/20/2024 Sex and Gender Information Value Date Recorded Sex Assigned at Not on file Gender Identity Not on file Sexual Orientation Not on file documented as of this encounter Nursing Notes * Marcella Quinonez LPN - 07/29/2024 10:50 AM CDT Prior authorization has been initiated for semaglutide-weight management (WEGOVY) 0.25 MG/0.5ML peninjection . documented in this encounter Plan of Treatment Upcoming Encounters Date Type Department Care Team (Late st Contact Info) Description 08/11/2024 3:00 PM CDT Appointment [facility] [address] [place] [address] 10/21/2024 2:30 PM [employer] Appointment [facility] [address] [place] [address] Miriam Montanez MD [address] [place] [address] [place] [address] 10/26/2024 1:45 PM [employer] Appointment Rheumatology at [facility] [address] [place] [address] Paulo Krishna MD [facility] [place], [place] [id number] 12/09/2024 1:50 PM [employer] Appointment [facility] [address] [facility] [facility] [place], [place] [phone] Dunia Lua MD [address] [place] [phone] documented as of this encounter Goals Goal Patient Goal Type Associated Problems Recent Progress Patient-Stated? Author Activity Diabetes Education No Sagrario Wagner, CRISTAL, LD, CDCES Note: 20 minutes activity daily documented as of this encounter Visit Diagnoses Not on filedocumented in this encounter Care Teams Medical Dermatologist Relationship Specialty Start Date End Date [place]iam [place] [id number] [place] [address] [place] Luu [address] PCP - General Family Practice 06/26/21 documented as of this encounter
--- OUTSIDE RECORDS SUMMARY | 2024-08-03 12:49 | XMS_ITS | Clinical Summary ---
[facility] Address [address], [place] [address] Care Team Providers Care Weaver Needle Loom Name Role Phone Miriam Montanez MD Primary Care Provider [phone] Source Comments You are receiving this document as you are listed as the primary care provider,follow-up provider, or the patient has been referred to you for consultation.This is in compliance with the Medicare and[facility] Health[employer] EHR Incentive Program,which states Providers who transition their patient to another setting of careor provider of care or refers their patient to another provider of care shouldprovide summary care record for each transition of care or referral. [facility] Allergies Active Allergy Reactions Criticality Noted Date Comments Diclofenac Sodium Hives High 02/10/2020 Broke out after putting gel on her Knee Gabapentin Headache Medium 05/30/2009 Metformin Other, see comments Medium 09/03/2018 Left sided abdominal pain Solifenacin Nausea Medium 02/03/2016 Topiramate Other, see comments Medium 06/26/2017 Pins and needle sensation, confusion Tramadol Itching Medium 04/03/2017 itching Medications Medication Sig Dispensed Refills Start Date End Date Status tiZANidine (ZANAFLEX) 2 MG tablet Take 1-2 Tablets by mouth at bedtime as needed (muscle spasms). 60 Tablet 3 11/20/20 21 Active Blood Glucose Monitoring Suppl (BLOOD GLUCOSE METER KIT)Indications:U ncontrolled type 2 diabetes mellitus with hyperglycemia (HRC) Use as directed. 1 Kit 02/13/20 23 Active omeprazole (PRILOSEC) 20 MG capsule Take 1 Capsule (20 mg) by mouth two times a day. Started at [facility] For duodenitis Active celecoxib (CELEBREX) 200 MG capsule TAKE 1 CAPSULE(200 MG) BY MOUTH EVERY 24 HOURS NEEDED FOR PAIN 90 Capsule 3 07/01/20 23 Active mupirocin (BACTROBAN) 2 % ointmentIndicatio ns:Carbuncle and furuncle of leg Apply topically two times a day. 30 g 2 10/29/20 23 Active pimecrolimus (ELIDEL) 1 % cream Apply topically two times a day. to affected areas as directed 30 g 07/21/20 24 Active semaglutide-weigh t management (WEGOVY) 0.25 MG/0.5ML pen injectionIndicati ons:Uncontrolled type 2 diabetes mellitus with hyperglycemia (C),BMI 45.0-49.9, adult ([facility]) Inject 0.5 mL (0.25 mg) subcutaneously once a week for 28 days. 2 mL 07/21/20 24 024 Active semaglutide-weigh t management (WEGOVY) 0.5 MG/0.5ML pen injectionIndicati ons:Uncontrolled type 2 diabetes mellitus with hyperglycemia (HRC),BMI 45.0-49.9, adult ([facility]) Inject 0.5 mL (0.5 mg) subcutaneously once a week for 28 days. Do not start before August 18, 2024. 2 mL 08/18/20 24 024 Active semaglutide-weigh t management (WEGOVY) 1 MG/0.5ML pen injectionIndicati ons:Uncontrolled type 2 diabetes mellitus with hyperglycemia (HRC),BMI 45.0-49.9, adult ([facility]) Inject 0.5 mL (1 mg) subcutaneously once a week for 28 days. Do not start before September 15, 2024. 2 mL 09/15/20 24 024 Active semaglutide-weigh t management (WEGOVY) 1.7 MG/0.75ML pen injectionIndicati ons:Uncontrolled type 2 diabetes mellitus with hyperglycemia (HRC),BMI 45.0-49.9, adult ([facility]) Inject 0.75 mL (1.7 mg) subcutaneously once a week for 28 days. Do not start before October 13, 2024. 3 mL 10/13/20 24 024 Active semaglutide-weigh t management (WEGOVY) 2.4 MG/0.75ML pen injectionIndicati ons:Uncontrolled type 2 diabetes mellitus with hyperglycemia (HRC),BMI 45.0-49.9, adult ([facility]) Inject 0.75 mL (2.4 mg) subcutaneously once a week. Do not start before November 10, 2024. 9.75 mL 3 11/10/20 24 025 Active citalopram (CELEXA) 40 MG tabletIndications :Agoraphobia with panic disorder (HRC) Take 1 Tablet (40 mg) by mouth daily. 90 Tablet 07/21/20 24 Active traZODone (DESYREL) 50 MG tabletIndications :Chronic insomnia Take 1-2 Tablets (50-100 mg) by mouth daily at bedtime. 180 Tablet 07/21/20 24 Active cetirizine (ZYRTEC) 10 MG tabletIndications :Photosensitivity dermatitis Take 1 Tablet (10 mg) by mouth daily. 90 Tablet 3 07/21/20 24 Active blood glucose test stripIndications: Uncontrolled type 2 diabetes mellitus with hyperglycemia (HRC) Use 1 Each to test three times a day. 100 Strip 07/21/20 24 Active glipiZIDE XL (GLUCOTROL XL) 5 MG 24 hour release tabletIndications :Uncontrolled type 2 diabetes mellitus with hyperglycemia (HRC) Take 2 Tablets (10 mg) by mouth daily. 180 Tablet 3 07/21/20 24 025 Active lancetsIndication s:Uncontrolled type 2 diabetes mellitus with hyperglycemia (HRC) Use 1 Each to test three times a day. 100 Each 07/21/20 24 Active rosuvastatin (CRESTOR) 40 MG tablet Take 1 Tablet (40 mg) by mouth daily. 90 Tablet 07/21/20 24 025 Active blood glucose test stripIndications: Uncontrolled type 2 diabetes mellitus with hyperglycemia (HRC) Use 1 Each to test three times a day. 100 Strip 11 02/13/20 23 024 Discontinued(*M ed change OR same med OR reorder, new dose/directions ) lancetsIndication s:Uncontrolled type 2 diabetes mellitus with hyperglycemia (HRC) Use 1 Each to test three times a day. 100 Each 11 02/13/20 024 Discontinued(*M ed change OR same med OR reorder, new dose/directions ) dulaglutide (TRULICITY) 1.5 MG/0.5ML injection penIndications:Un controlled type 2 diabetes mellitus with hyperglycemia (HRC) Inject 1.5 mg subcutaneously once a week. 6 mL 3 08/02/20 024 Discontinued glipiZIDE XL (GLUCOTROL XL) 5 MG 24 hour release tabletIndications :Uncontrolled type 2 diabetes mellitus with hyperglycemia (HRC) Take 2 Tablets (10 mg) by mouth daily. 180 Tablet 3 10/29/20 024 Discontinued(*M ed change OR same med OR reorder, new dose/directions ) cetirizine (ZYRTEC) 10 MG tabletIndications :Photosensitivity dermatitis Take 1 Tablet (10 mg) by mouth daily. 90 Tablet 3 10/29/20 024 Discontinued(*M ed change OR same med OR reorder, new dose/directions ) traZODone (DESYREL) 50 MG tabletIndications :Chronic insomnia Take 1-2 Tablets (50-100 mg) by mouth daily at bedtime. 180 Tablet 3 10/29/20 024 Discontinued(*M ed change OR same med OR reorder, new dose/directions ) rosuvastatin (CRESTOR) 40 MG tablet Take 1 Tablet (40 mg) by mouth daily. 90 Tablet 3 10/30/20 024 Discontinued(*M ed change OR same med OR reorder, new dose/directions ) citalopram (CELEXA) 40 MG tabletIndications :Agoraphobia with panic disorder (HRC) TAKE 1 TABLET(40 MG) BY MOUTH DAILY 90 Tablet 3 12/30/19 024 Discontinued(*M ed change OR same med OR reorder, new dose/directions ) pimecrolimus (ELIDEL) 1 % cream Apply topically two times a day. to affected areas as directed 30 g 02/25/20 024 Discontinued(*M ed change OR same med OR reorder, new dose/directions ) Active Problems Problem Noted Date Diagnosed Date Uncontrolled type 2 diabetes mellitus with hyper glycemia 03/12/2023 Intraductal papilloma 12/13/2022 Overview (12/13/2022): Added automatically from request for surgery [id number] Polycythemia 08/03/2021 Obstructive sleep apnea on CPAP 11/09/2018 Overview (11/09/2018): Setting: APAP 5-15 Supplied by: [facility] PSG done: 09/24/18 HST AHI 14 RDI - Lowest O2 Sat: 79% Mary Carmen/Compa 11/05/18 new Elevated coronary artery calcium score 8 Chronic midline low back pain without sciatica 0 07/02/2018 Scoliosis 07/02/2018 HLD (hyperlipidemia) 05/14/2018 Overview (05/14/2018): CVD risk calculated at 5.92 % as of 05/14/2018 Vitamin D deficiency 03/31/2018 Fibromyalgia 12/26/2016 Weakness of both lower extremities 12/26/2016 Hirsutism 02/23/2016 Primary osteoarthritis of both knees 10/12/2015 Urinary incontinence, urge 02/11/2015 BMI 45.0-49.9, adult 02/01/2015 Tobacco abuse 08/31/2013 Encounter for long-term (cur rent) use of non-steroidal anti-inflammatories 08/31/2013 Meralgia paresthetica 10/26/2008 Resolved Problems Problem Noted Date Diagnosed Date Resolved Date Class 3 severe obesity due t o excess calories with body mass index (BMI) of 45.0 to 49.9 in adult 09/11/2018 07/21/2024 Morbid obesity due to excess calories 12/26/2016 11/08/2017 Morbid obesity due to excess calories 01/16/2016 02/23/2016 Acute appendicitis with localized peritonitis 03/14/20 15 02/23/2016 Gross hematuria 02/11/2015 11/08/2017 Leg cramps 09/20/2014 02/23/2016 Leg edema 12/07/2013 02/23/2016 Morbid obesity 11/13/2011 02/01/2015 Osteoarthrosis involving lower leg 05/30/2009 05/17/2021 Overview (07/24/2017): LW Modifier: right, mild by outside x-ray PF joint ; DJD Knee Myalgia 10/26/2008 05/17/2021 Overview (07/24/2017): Fibromyalgia Major depressive disorder, r ecurrent episode, in full remission 02/07/2004 2013 Overview (07/24/2017): LW Onset: [id number] ; Depression Major Recurrent Full Remissio Agoraphobia with panic disorder 02/07/2004 05/17/2021 Overview (02/17/2020): LW Onset: 54Sin37 ; Panic Disorder w Agoraphobia Patient deneis agoraphonbia , but has panic disorder Encounters Date Type Department Care Team Description 07/29/[address] [address] Miriam Montanez MD Prior Authorization For Medication (semaglutide-weight management (WEGOVY) 0.25 MG/0.5ML pen injection) 07/23/[address] [address] Miriam Montanez MD Prior Authorization Request 07/21/2024 12:10 PM CDT Lab Visit [facility] [address] [place] [address] Uncontrolled type 2 diabetes mellitus with hyperglycemia (HRC) 07/21/2024 11:30 AM CDT Office Visit [address] [address] Miriam Montanez MD Uncontrolled type 2 diabetes mellitus with hyperglycemia (HRC) (Primary Dx); Agoraphobia with panic disorder (HRC); Chronic insomnia; Photosensitivity dermatitis; Tobacco abuse (HRC); Hyperlipidemia, unspecified hyperlipidemia type (HRC); BMI 45.0-49.9, adult (HRC) 07/20/2024 2:15 PM CDT Office Visit Rheumatology at [facility] [address] [place] [address] Paulo Krishna MD Primary osteoarthritis of both knees (Primary Dx); Fibromyalgia; Class 3 severe obesity due to excess calories without serious comorbidity with body mass index (BMI) of 50.0 to 59.9 in adult (HRC); Carpal tunnel syndrome, left 07/10/2024 E-Visit [facility] [address] [facility] [address] [place] [address] Mychart, Generic Provider 07/06/2024 Telephone Gastroenterology at [facility] at [address] [place] [address] Olga Brooks MD NURSE PREP FOR PROCEDURE 07/06/2024 E-Visit Gastroenterology at [address] [place] [address] Mychart, Generic Provider 07/06/2024 Notes/Orders Gastroenterology at [address] [place] [address] Olga Brooks MD from Last 3 Months Immunizations Name Administration Dates Next Due Flu Vac (3+ yrs) 09/19/2013 Flu Vac Preserv Free (3+yrs) 09/15/2013, 08/13/2012,09/12/2011,2009,09/14/2010,08/16/2009,09/15/2008,1 H1n1 Miv Sanofi 3+ Yr (Injected) 11/22/2009 HepB Adult (Engerix-B, 20+ y rs, 3 dose series) 02/10/2020 Influenza (Flucelvax), Prese rv Free QIV 10/14/2023 Influenza IIV4 (Quadrivalent ) 0.5mL ([id number]) 09/05/2022,08/21/2021,08/10/2020,2018,09/03/2018,01/01/2018,07/18/2016,1 12/12/2014,09/20/2014 Influenza, Unspecified Formulation 08/27,09/14/2010,08/16/2009,2007,09/23/2007,09/22/2003 Moderna Monovalent 12+ 04/13/2021,03/15/2021 PCV20 ([id number]) 10/29/2023 PPSV23 (Pneumovax) 05/14/2018 Pfizer 12+ 10/29/2023 TDAP (BOOSTRIX) 11/26/2012 Td 06/28/2003,04/29/1997 Tdap 10/29/2023 Zoster RZV (Shingrix) 08/10/2020,02/10/2020 Family History Medical History Relation Name Comments Alzheimer's Father [place] Dementia Father [place] Depression Father [place] Heart Disease Father [place] CABG High Cholesterol Father [place] Heart Disease Mother Maydelle AAA High Blood Pressure Mother Maydelle High Cholesterol Mother Maydelle Heart Disease Brother 1 Velasquez CABG Mental Disorder Brother 2 Depression Brother 3 Alfonso Cancer Maternal Aunt Mayuri Waterman Cancer Maternal Grandmother Jacki colon c a Cancer, Colon Maternal Grandmother Echeverria Cancer Maternal Uncle 1 Jimi Smith Stroke Maternal Uncle 2 Vernon Alzheimer's Paternal Grandmother Chuyita Dementia Paternal Grandmother Chuyita Heart Disease Paternal Grandmother Chuyita Cancer, Breast Negative Family History Cancer, Ovary Negative Family History Relation Name Status Comments Father [place] Mother Maydelle Alive Brother 1 Velasquez Alive Brother 2 Alive Brother 3 Alfonso Maternal Aunt Mayuri Waterman Maternal Grandfather Maternal Grandmother Echeverria Maternal Uncle 1 Jimi Smith Maternal Uncle 2 Vernon Paternal Grandfather Paternal Grandmother Chuyita Sister Alive Social History Tobacco Use Types Packs/Day Years Used Date Smoking Tobacco: Every Day Cigarettes 1 48.3 Started: 04/28/1976 Smokeless Tobacco: Never Tobacco Cessation:Ready to Q uit: Not Asked; Counseling Given: Not Answered Comments:Smoking History Packs/day: 1 pack Alcohol Use Standard Drinks/Week Comments [...] any time in the past 12 m [facility], were you homeless or living in a retirement (including now)? No 07/20/2024 Sex and Gender Information Value Date Recorded Sex Assigned at Not on file Gender Identity Not on file Sexual Orientation Not on file Last Filed Vital Signs Vital Sign Reading Time Taken Comments Blood Pressure 113/65 07/21/2024 11:30 AM CDT Pulse 79 07/21/2024 11:30 AM CDT Temperature 36.4 ??C (97.5 ??F) 10/14/2023 1:42 PM CS T Respiratory Rate 18 01/22/2023 6:30 PM [employer] Oxygen Saturation 92% 01/22/2023 6:30 PM [employer] Inhaled Oxygen Concentration - - Weight 117.9 kg (260 lb) 07/21/2024 11:30 AM CDT pt reported Height 157.5 cm (5' 2) 04/26/2023 2:14 PM CDT Body Mass Index 47.55 04/26/2023 2:14 PM CDT Plan of Treatment Upcoming Encounters Date Type Department Care Team (Late st Contact Info) Description 08/11/2024 3:00 PM CDT Appointment [facility] [id number] [place] [address] 10/21/2024 2:30 PM [employer] Appointment [facility] [id number] [place] [address] [place] [address] [place] [address] 10/26/2024 1:45 PM [employer] Appointment Rheumatology at [facility] [place] [address] [facility] [address] [place], [place] [phone] Paulo Krishna MD [address] [place], [place] [phone] 12/09/2024 1:50 PM [employer] Appointment [facility] Endoscopy [address] [facility]. [place], [place] [id number] Dunia Lua MD [address] [place] [phone] Health Maintenance Due Date Last Done Comments HepB (2) 03/09/2020 02/10/2020 Lung Cancer Screening 03/13/2024 03/13/2023 (Completed), 10/15/2018, 01/17/2017, Additional history exists Cervical Cancer Screening 04/22/20242018, 02/01/2015, 2013, Additional history exists Colonoscopy 07/12/2024 07/12/2021, 05/02, 01/29/2011, Additional history exists Influenza (#1) 2024 10/14/2023, 1004/2022, 08/21/2021, Additional history exists Diabetes: HGBA1C 10/21/2024 07/21/2024, , 10/29/2023, Additional history exists Adult Preventive Visit 10/29/2024 , 04/22/2019, 11/06/2017 Diabetes: Creatinine 10/29/2024 10/29/2023, 01/09/2023, 08/02/2021, Additional history exists Diabetes: Foot Exam 10/29/2024 10/29/2023 Mammogram 04/15/2025 04/15/2024, 01/03 (Completed), 10/10/2022, Additional history exists Diabetes: Eye Exam 06/15/2025 06/15/2024 (C ompleted), 08/02/2020 Diabetes: Urine Microalbumin 07/21/2025 07/21/2024, 08/02/2021, 02/10/2020 Diabetes: Lipid Panel 02/18/2029 02/19/2024 , 10/29/2023, 05/13/2023, Additional history exists DTaP/Tdap/Td (3 - Tdap) 10/29/2033 10/29/20 23, 11/26/2012, 06/28/2003, Additional history exists HIV Screening (Preventive Services) Completed 05/14/2018 Hep C Screening (Preventive Services) Completed 05/14/2018 Zoster/Shingles Completed 08/10/2020, 02/10/2020 COVID-19 Vaccine Completed 10/29/2023, , 03/15/2021 Pneumococcal Completed 10/29/2023, 05/14/2018 HepA Aged Out No longer eligi ble based on patient's age to complete this topic Hib Aged Out No longer eligi ble based on patient's age to complete this topic IPV (Polio) Aged Out No longer eligi ble based on patient's age to complete this topic MCV4 Aged Out No longer eligi ble based on patient's age to complete this topic Goals Goal Patient Goal Type Associated Problems Recent Progress Patient-Stated? Author Activity Diabetes Education No Sagrario Wagner RDN, LD, CDCES Note: 20 minutes activity daily Procedures Procedure Name Priority Date/Time Associated Diagnosis Comments ALBUMIN/CREAT RATIO Routine 07/21/2024 1 2:35 PM CDT Uncontrolled type 2 diabetes mellitus with hyperglycemia (HRC) HGB A1C Routine 07/21/2024 12:22 PM CDT Uncontrolled type 2 diabetes mellitus with hyperglycemia (HRC) MM MAMMOGRAM SCREENING BILAT W 3D ZANE W CAD Routine 04/15/2024 1:04 PM CDT LIPID PANEL & DIRECT LDL (IF NEEDED) Routine 02/19/2024 1:09 PM CDT Hyperlipidemia, unspecified hyperlipidemia type (HRC) CREATININE / GFR Routine 10/29/2023 12:5 0 PM [employer]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 non-steroidal anti-inflammatories (NSAID) ENDOSCOPY, COLON, SCREENING/DIAGNOSTI C Routine 07/12/2021 4:05 PM CDT Screen for colon cancer YASMEEN (DIABETIC EYE EXAM) 08/02/2020 PAP TEST Routine 04/22/2019 11:14 AM CDT Pap smear for cervical cancer screening CT CHEST WO IV CONT LUNG SCREENING Routine 10/15/2018 10:48 AM [employer] Cigarette smoker HIV-1 P24 AND HIV-1/HIV-2 ANTIBODIES Routine 05/14/2018 12:54 PM CDT Numbness and tingling in both hands Tingling of right arm and right side of face HEPATITIS C ANTIBODY, WITH REFLEX Routine 05/14/2018 12:54 PM CDT Numbness and tingling in both hands Tingling of right arm and right side of face from Last 3 Months or Most Recently Relevant to Health Maintenance Results * Albumin/Creatinine Ratio,Random Urine (07/21/2024 12:35 PM CDT) Albumin/Creati nine Ratio, Urine, Random 6 <30 mg/g 07/21/2024 1:40 PM CDT [facility] Albumin, Urine, Random 10.0 mg/L 07/21/2024 1:40 PM CDT [facility] Creatinine, Urine, Random 174 >20 mg/dL mg/dL 07/21/2024 1:40 PM CDT [facility] Urine Non-blood Collection / Unknown 07/21/2024 12:35 PM CDT 07/21/2024 12:35 PM CDT Miriam Montanez MD LAB_1 Performing Organization Address [facility] Co de Phone Number [facility] [address] [place] [address] * (ABNORMAL) Hgb A1C (07/21/2024 12:22 PM CDT) Hemoglobin A1C (Rapid) 10.3(H) <=5.6 % 07/21/2024 12:47 PM CDT [facility] Estimated Average Glucose (Calc) 249 < 117 mg/dL 07/21/2024 12:47 PM CDT [facility] Comment:Estimated average gl ucose (eAG) converts A1c into glucose units (mg/dL) and estimates average glucose over the past approximately 3 months. The eAG reference interval (<117 mg/dL) corresponds to an A1c of <5.7%. Blood Venipuncture / Unknown 07/21/2024 12:22 PM CDT 07/21/2024 12:22 PM CDT Narrative [facility] - 07/21/2024 12:47 PM CDT For patients not previously diagnosed with diabetes: 5.7-6.4%: Increased risk for diabetes 6.5% and greater: Diagnostic for diabetes For patients diagnosed with diabetes: <8.0%: Goal of therapy for ages 18-75 Clinicians may recommend a higher or lower goal for specific individuals. The test method used for this Hemoglobin A1c result can experience interference from elevated hemoglobin and other hemoglobin variants. In patients with results that do not correlate clinically, contact the lab for further direction. Miriam Montanez MD LAB_1 Performing Organization Address [facility] Co de Phone Number [facility] [address] [place] [address] * MM Mammogram Screening Bilat W 3D Zane W CAD (04/15/2024 1:04 PM CDT) Anatomical Region Laterality Modality Breast Bilateral Mammography Impressions 04/15/2024 1:53 PM CDT : ACR BI-RADS Category 2: Benign RECOMMENDATION: Follow Up Imaging in 12 months - Bilateral The results and recommendations of this examination will be communicated to the patient. Narrative 04/15/2024 1:53 PM CDT MM MAMMOGRAM SCREENING BILAT W 3D ZANE W CAD performed on 04/15/24 Compared to: 10/10/2022 MM Mammogram Screening Bilat W 3D Zane W CAD, 03/09/2021 MM Mammogram Screening Bilat W 3D Zane W CAD, and 06/25/2018 MM Mammogram Screening Bilat W CAD ?? FINDINGS: Bilateral screening mammogram was performed with the assistance of Computer-Aided Detection and breast tomosynthesis. The breasts have scattered areas of fibroglandular density. There are breast conservation changes on the left. There is no radiographic evidence of malignancy. ?? Miriam oMntanez MD [facility] * (ABNORMAL) Lipid Panel & Direct LDL (if Needed) (02/19/2024 1:09 PM CDT) Cholesterol 226(H) 0 - 199 mg/dL 02/19/2024 4:57 PM T [facility] Triglyceride 240(H) <=149 mg/dL 02/19/2024 4:57 PM [facility] HDL Cholesterol 41 >=40 mg/dL 4 4:57 PM [facility] LDL, Calculated 137(H) <130 mg/dL 4 4:57 PM [facility] Non HDL Chol, Calculated 185(H) <=159 mg/dL 02/19/2024 4:57 PM [facility] Cholesterol/HDL Ratio 5.5(H) <=5.0 02/19/2024 4:57 PM [facility] Hours Fasting 6.0 8 - 12 Hours 02/19/2024 4:57 PM [facility] Blood Venipuncture / Unknown 02/19/2024 1:09 PM CDT 02/19/2024 1:09 PM CDT Miriam Montanez MD LAB_1 [facility] [address] [place] [address], [facility] * Creatinine / GFR (10/29/2023 12:50 PM [employer]) Creatinine 0.80 0.55 - 1.02 mg/dL 10/29/2023 5:24 PM [employer] [facility] GFR, Estimated >60 >60 mL/min/1.7 3m2 10/29/2023 5:24 PM [employer] [facility] Blood Venipuncture / Unknown 10/29/2023 12:50 PM [employer] 10/29/2023 12:50 PM [employer] Paulo Krishna MD LAB_1 [facility] [address] [place] [address], [facility] [phone] * Endoscopy, colon, diagnostic (07/12/2021 4:05 PM CDT) 07/12/2021 4:05 PM CDT Narrative GI ([facility]) - 07/12/2021 4:05 PM CDT Patient Name: Susy Navas Procedure Date: 07/12/2021 4:05 PM Date of : 1960 Admit Type: Outpatient Age: 60 Gender: Female Note Status: Finalized Attending MD: Oliverio Sandoval , Procedure: ? Colonoscopy Indications: ? Surveillance: Personal history of ? adenomatous polyps on last ? colonoscopy 5 years ago Providers: ? Marleni Alexandre RN Referring MD: ? Medicines: ? Midazolam 3 mg IV, Fentanyl 100 ? micrograms IV Complications: ? No immediate complications. Procedure: ? Pre-Anesthesia Assessment: ? - Prior to the procedure, a History ? and Physical was performed, and ? patient medications, allergies and ? sensitivities were reviewed. The ? patient's tolerance of previous ? anesthesia was reviewed. ? - The risks and benefits of the ? procedure and the sedation options ? and risks were discussed with the ? patient. All questions were answered ? and informed consent was obtained. ? After I obtained informed consent, ? the scope was passed under direct ? vision. Throughout the procedure, the ? patient's blood pressure, pulse, and ? oxygen saturations were monitored ? continuously. The [id number] was ? introduced through the anus and ? advanced to the terminal ileum, with ? identification of the appendiceal ? orifice and IC valve. The ? [id number] was introduced through ? the and advanced to. The colonoscopy ? was performed without difficulty. The ? patient tolerated the procedure well. ? The quality of the bowel preparation ? was good. Findings: ? Scattered small-mouthed diverticula were found in the ? sigmoid colon. ? Two sessile polyps were found in the recto-sigmoid ? colon. The polyps were 4 to 7 mm in size. These ? polyps were removed with a cold snare. Resection and ? retrieval were complete. ? A 2 mm polyp was found in the transverse colon. The ? polyp was sessile. The polyp was removed with a cold ? biopsy forceps. Resection and retrieval were complete. ? A 10 mm polyp was found in the cecum. The polyp was ? sessile. The polyp was removed with a hot snare. ? Resection and retrieval were complete. ? The terminal ileum appeared normal. Moderate Sedation: ? Moderate (conscious) sedation was administered by the ? endoscopy nurse and supervised by the endoscopist. ? The following parameters were monitored: oxygen ? saturation, heart rate, blood pressure, and response ? to care. Total physician intraservice time was 27 ? minutes. Impression: ?- Diverticulosis in the sigmoid colon. ? - Two 4 to 7 mm polyps at the ? recto-sigmoid colon, removed with a ? cold snare. Resected and retrieved. ? - One 2 mm polyp in the transverse ? colon, removed with a cold biopsy ? forceps. Resected and retrieved. ? - One 10 mm polyp in the cecum, ? removed with a hot snare. Resected ? and retrieved. ? - The examined portion of the ileum ? was normal. Recommendation: ?- Await pathology results. ? - Repeat colonoscopy in 3 years for ? surveillance. Procedure Code(s): ?? --- Professional --- ? 98547, Colonoscopy, flexible; with ? removal of tumor(s), polyp(s), or ? other lesion(s) by snare technique ? 80266, 59, Colonoscopy, flexible; ? with biopsy, single or multiple ? 39409, Moderate sedation; each ? additional 15 minutes intraservice ? time ? G0500, Moderate sedation services ? provided by the same physician or ? other qualified health care ? professional performing a ? gastrointestinal endoscopic service ? that sedation supports, requiring the ? presence of an independent trained ? observer to assist in the monitoring ? of the patient's level of ? consciousness and physiological ? status; initial 15 minutes of ? intra-service time; patient age 5 ? years or older (additional time may ? be reported with 71596, as ? appropriate) Diagnosis Code(s): ?? --- Professional --- ? K63.5, Polyp of colon ? Z86.010, Personal history of colonic ? polyps ? K57.30, Diverticulosis of large ? intestine without perforation or ? abscess without bleeding CPT copyright 2019 [employer]. All rights reserved. The codes documented in this report are preliminary and upon talent coordinator review may be revised to meet current compliance requirements. Oliverio Sandoval, 07/12/2021 5:25:15 PM Number of Addenda: 0 Note Initiated On: 07/12/2021 4:05 PM ? Endoscopy Report Procedure Note Provider, MD Emigdio - 07/12/2021 Patient Name: Susy Navas Procedure Date: 07/12/2021 4:05 PM Date of : 1960 Admit Type: Outpatient Age: 60 Gender: Female Note Status: Finalized Attending MD: Oliverio Sandoval , Procedure: Colonoscopy Indications: Surveillance: Personal history of adenomatous polyps on last colonoscopy 5 years ago Providers: Oliverio Sandoval, Marleni Gongora RN Referring MD: Medicines: Midazolam 3 mg IV, Fentanyl 100 micrograms IV Complications: No immediate complications. Procedure: Pre-Anesthesia Assessment: - Prior to the procedure, a History and Physical was performed, and patient medications, allergies and sensitivities were reviewed. The patient's tolerance of previous anesthesia was reviewed. - The risks and benefits of the procedure and the sedation options and risks were discussed with the patient. All questions were answered and informed consent was obtained. After I obtained informed consent, the scope was passed under direct vision. Throughout the procedure, the patient's blood pressure, pulse, and oxygen saturations were monitored continuously. The [id number] was introduced through the anus and advanced to the terminal ileum, with identification of the appendiceal orifice and IC valve. The [id number] was introduced through the and advanced to. The colonoscopy was performed without difficulty. The patient tolerated the procedure well. The quality of the bowel preparation was good. Findings: Scattered small-mouthed diverticula were found in the sigmoid colon. Two sessile polyps were found in the recto-sigmoid colon. The polyps were 4 to 7 mm in size. These polyps were removed with a cold snare. Resection and retrieval were complete. A 2 mm polyp was found in the transverse colon. The polyp was sessile. The polyp was removed with a cold biopsy forceps. Resection and retrieval were complete. A 10 mm polyp was found in the cecum. The polyp was sessile. The polyp was removed with a hot snare. Resection and retrieval were complete. The terminal ileum appeared normal. Moderate Sedation: Moderate (conscious) sedation was administered by the endoscopy nurse and supervised by the endoscopist. The following parameters were monitored: oxygen saturation, heart rate, blood pressure, and response to care. Total physician intraservice time was 27 minutes. Impression: - Diverticulosis in the sigmoid colon. - Two 4 to 7 mm polyps at the recto-sigmoid colon, removed with a cold snare. Resected and retrieved. - One 2 mm polyp in the transverse colon, removed with a cold biopsy forceps. Resected and retrieved. - One 10 mm polyp in the cecum, removed with a hot snare. Resected and retrieved. - The examined portion of the ileum was normal. Recommendation: - Await pathology results. - Repeat colonoscopy in 3 years for surveillance. Procedure Code(s): --- Professional --- 56969, Colonoscopy, flexible; with removal of tumor(s), polyp(s), or other lesion(s) by snare technique 41385, 59, Colonoscopy, flexible; with biopsy, single or multiple 11365, Moderate sedation; each additional 15 minutes intraservice time G0500, Moderate sedation services provided by the same physician or other qualified health pediatric acute care unit nurse performing a gastrointestinal endoscopic service that sedation supports, requiring the presence of an independent trained observer to assist in the monitoring of the patient's level of consciousness and physiological status; initial 15 minutes of intra-service time; patient age 5 years or older (additional time may be reported with 08826, as appropriate) Diagnosis Code(s): --- Professional --- K63.5, Polyp of colon Z86.010, Personal history of colonic polyps K57.30, Diverticulosis of large intestine without perforation or abscess without bleeding CPT copyright 2019 [employer]. All rights reserved. The codes documented in this report are preliminary and upon talent coordinator review may be revised to meet current compliance requirements. Oliverio Jag Sandoval, 07/12/2021 5:25:15 PM Number of Addenda: 0 Note Initiated On: 07/12/2021 4:05 PM Endoscopy Report Kenia Stern MD PN GI PROCEDURE [facility] [place], [place] * YASMEEN (DIABETIC EYE EXAM) (08/02/2020) Interface Provider DUMMY/OTHER/AR * PAP Test (04/22/2019 11:14 AM CDT) Case Report Pap ? Case: [id number] ? Authorizing Provider: ??Florencia Goel, ?Collected: ? 04/22/2019 11:14 AM ? RETAIL SELLING SPECIALIST, HEARING INSTRUMENT SPECIALIST ? [facility]ing Location: ? [facility] ? Received: ?04/22/2019 01:23 PM ? Services-BUSINESS LAW PROFESSOR ? First Screen: ?Citlali Robles ? Rescreen: ?Larry Staleyoe E, CT (ASCP) ? Specimen: ?Pap Test, Routine, Cervix/Endocervix ? 04/30/2019 1:39 PM CDT [facility] Pap Specimen Adequacy Satisfactory for evaluation, endocervical/castle sformation zone component absent. 04/30/2019 1:39 PM CDT [facility] Pap Interpretation Negative for intraepithelial lesion or malignancy (NILM). 04/30/2019 1:39 PM CDT [facility] Gross Description The specimen is received in SurePath fixative and properly labeled. 1 Pap-stained SurePath slide is prepared. 04/30/2019 1:39 PM CDT [facility] Pap Disclaimer The Pap test is a screening test designed to aid in the detection of cervical cancer and its precursor lesions. It is not a diagnostic procedure and should not be used as the sole means of detecting cervical cancer. Both false-positive and false-negative reports may occur. 04/30/2019 1:39 PM CDT [facility] Embedded Images 1:39 PM CDT [facility] Other Specimen Type ENTIRE ENDOCERVIX / Unknown 04/22/2019 11:14 AM CDT 04/22/2019 1:23 PM CDT Comment:LMP: Patient's last menstrual period was 10/27/2015 (exact date). Florencia Goel APRN, NELLY LAB PATHOL OGY [facility] [address] [place] [address] * CT Chest WO IV Cont Lung Screening (10/15/2018 10:48 AM BATTERY CONTAINER FINISHING HAND) Anatomical Region Laterality Modality Chest, Lung Computed Tomogra phy 10/15/2018 10:3 7 AM BATTERY CONTAINER FINISHING HAND Impressions 10/15/2018 11:49 AM BATTERY CONTAINER FINISHING HAND IMPRESSION: 1. 0.7 cm poorly defined nodular opacity in the lingula is increased in size from the prior exam. Other pulmonary nodules are stable. ACR Lung-RADS Category 4A: Suspicious. Pulmonary consultation is recommended. Additional diagnostic testing is recommended. [address] (select CT Chest Diag WO IV Cont LCS F/U) or PET/CT may be used when there is a >= 8 mm solid component. Narrative 10/15/2018 11:49 AM BATTERY CONTAINER FINISHING HAND COMPARISON: 01/17/2017. TECHNIQUE: Images through the chest were obtained without contrast using a low dose lung screening technique. FINDINGS: 0.5 cm right upper lobe nodule unchanged on series 3 image 35. Stable 0.5 cm nodule left upper lobe image 59. 0.7 cm poorly defined opacity in the lingula image 107 is more prominent than on the prior examination. No new nodules. ??Heart size normal. No effusion. No evident adenopathy. Limited views the upper abdomen are stable. No destructive osseous lesions. Kenia Stern MD RAD CT * LAB HIV-1 p24 AND HIV-1/HIV-2 ANTIBODIES (05/14/2018 12:54 PM CDT) HIV-1 p24 Ag and HIV-1/HIV-2 Ab Nonreactive Nonreactive PN SOFT 05/14/2018 12:5 4 PM CDT 05/14/2018 3:49 PM CDT Narrative PN SOFT - 05/14/2018 5:46 PM CDT Performed at [facility] [place], [address] [place] [address] CLIA number [id number] Kenia Stern MD LAB_1 Performing Organization Address [facility] de Phone Number PN SOFT [address] [place] [address] * Hepatitis C Antibody, with Reflex (05/14/2018 12:54 PM CDT) Hepatitis C Antibody Nonreactive Nonreactive PN SOFT 05/14/2018 12:5 4 PM CDT 05/14/2018 3:49 PM CDT Narrative PN SOFT - 05/14/2018 5:46 PM CDT Performed at [facility] [place], [address] [place] [address] CLIA number [id number] Kenia Stern MD LAB_1 Performing Organization Address [facility] de Phone Number PN SOFT [address] [place] [address] from Last 3 Months or Most Recently Relevant to Health Maintenance Advance Directives * Full Code (Latest Code Status on File) Date Activated Date Inactivated Comments 01/22/2023 5:42 PM 01/22/2023 8:46 PM * Full Code Date Activated Date Inactivated Comments 03/14/2015 4:51 PM 03/14/2015 11:53 PM Care Teams Weaver Needle Loom Relationship Specialty [place] [address] [place] [address] PCP - General Family Practice 06/26/21
--- OUTSIDE RECORDS SUMMARY | 2024-08-03 12:49 | XMS_ITS | Encounter Summary ---
Author Organization [facility] Address [address], [place] [address] Care Team Providers Care Radio Message Router Name Role Phone Miriam Montanez MD Primary Care Provider [phone] Reason for Visit * Reason Comments Prior Authorization Request Encounter Details Date Type Department Care Team (Late st Contact Info) Description 07/23/2024 Telephone [facility] [address] [place] [address] [place] [address] [place] [address] Prior Authorization Request Social History Tobacco Use Types Packs/Day Years [...] any time in the past 12 m ont, were you homeless or living in a long-term (including now)? No 07/20/2024 Sex and Gender Information Value Date Recorded Sex Assigned at Not on file Gender Identity Not on file Sexual Orientation Not on file documented as of this encounter Nursing Notes * Marcella Quinonez LPN - 07/29/2024 10:47 AM CDT Spoke to patient and initiated Prior Authorization for Wegovey. * Marcella Quinonez LPN - 07/23/2024 3:06 PM CDT Left message for patient to call back. [facility] ([facility]), please warm transfercall to extension [phone] to discuss. If no answer at extension, re-route to CSS (Clinical Zyglo Inspector). Message to Patient/Caller: Patient is not on Ozempic and I just wanted to clarify if she wants Wegovy sent to a different pharmacy instead (if so which pharmacy) or if she needs a new prescription for Ozempic. * Meeta Silverman - 07/23/2024 10:56 AM CDT Prior Authorizations What prior authorization is needed? Ozempic Pt advised that Wegovy is out of stock Insurance Carrier: [facility] Insurance Carrier (if different from above): For a medication PA, patient would like it filled at the pharmacy listed in Meds & Orders. Additional comments (related to the above concern): Preferred communication method: Phone Call. Is it okay to leave a detailed message on your voicemail? Yes Is there anything else I can help you with today? documented in this encounter Plan of Treatment Upcoming Encounters Date Type Department Care Team (Late st Contact Info) Description 08/11/2024 3:00 PM CDT Appointment [facility] [id number] [place] [address] 10/21/2024 2:30 PM PROGRAM MANAGEMENT MANAGER Appointment [facility] [id number] [place] [address] [place] [address] [place] [address] 10/26/2024 1:45 PM PROGRAM MANAGEMENT MANAGER Appointment Rheumatology at [facility] [id number] [place] [address] [id number] Paulo Krishna MD [address] [place] [address] 12/09/2024 1:50 PM PROGRAM MANAGEMENT MANAGER Appointment [facility] [address] [facility] [place] [address] Dunia Lua MD [address] [place] [phone] documented as of this encounter Goals Goal Patient Goal Type Associated Problems Recent Progress Patient-Stated? Author Activity Diabetes Education No Sagrario Wagner, CRISTAL, LD, CDCES Note: 20 minutes activity daily documented as of this encounter Visit Diagnoses Not on filedocumented in this encounter Care Teams Radio Message Router Relationship Specialty [place] [address] [address] [place] [address] PCP - General Family Practice 06/26/21 documented as of this encounter
[2024-08-03 12:50] LABS: Slide Review Reflex No
--- OUTSIDE RECORDS SUMMARY | 2024-08-03 12:50 | XMS_ITS | Encounter Summary ---
Author Organization [facility] Address [address] [address] Care Team Providers Care Roller Inspector And Mender Name Role Phone Miriam Montanez MD Primary Care Provider [phone] Encounter Details Date Type Department Care Team (Late st Contact Info) Description 07/21/2024 12:10 PM CDT Lab Visit [facility] [address] [place] [address] Uncontrolled type 2 diabetes mellitus with hyperglycemia (HRC) Social History Tobacco Use Types Packs/Day Years [...] any time in the past 12 m [facility], were you homeless or living in a senior living (including now)? No 07/20/2024 Sex and Gender Information Value Date Recorded Sex Assigned at Not on file Gender Identity Not on file Sexual Orientation Not on file documented as of this encounter Plan of Treatment Upcoming Encounters Date Type Department Care Team (Late st Contact Info) Description 08/11/2024 3:00 PM CDT Appointment [facility] [address] [place] [address] 10/21/2024 2:30 PM LOGISTICS OPERATIONS DIRECTOR Appointment [facility] [address] [place] [address] [place] [address] [place] [address] [place] [address] 10/26/2024 1:45 PM LOGISTICS OPERATIONS DIRECTOR Appointment Rheumatology at [facility] [address] [address] [place] [address] Paulo Krishna MD [address] [place], [place] [address] 12/09/2024 1:50 PM LOGISTICS OPERATIONS DIRECTOR Appointment [facility] [address] [place] [address]. [place], [place] 69[address] Dunia Lua MD [address] [place] [phone] documented as of this encounter Goals Goal Patient Goal Type Associated Problems Recent Progress Patient-Stated? Author Activity Diabetes Education No Sagrario Wagner, CRISTAL, LD, CDCES Note: 20 minutes activity daily documented as of this encounter Procedures Procedure Name Priority Date/Time Associated Diagnosis Comments ALBUMIN/CREAT RATIO Routine 07/21/2024 12:35 PM CDT Uncontrolled type 2 diabetes mellitus with hyperglycemia (HRC) HGB A1C Routine 07/21/2024 12:22 PM CDT Uncontrolled type 2 diabetes mellitus with hyperglycemia (HRC) documented in this encounter Results * Albumin/Creatinine Ratio,Random Urine (07/21/2024 12:35 PM CDT) Albumin/Creati nine Ratio, Urine, Random 6 <30 mg/g 07/21/2024 1:40 PM CDT [facility] Albumin, Urine, Random 10.0 mg/L 07/21/2024 1:40 PM CDT [facility] Creatinine, Urine, Random 174 >20 mg/dL mg/dL 07/21/2024 1:40 PM CDT [facility] Urine Non-blood Collection / Unknown 07/21/2024 12:35 PM CDT 07/21/2024 12:35 PM CDT Miriam Montanez MD LAB_1 [facility] [address] [place] [address], [facility] * (ABNORMAL) Hgb A1C (07/21/2024 12:22 PM CDT) Hemoglobin A1C (Rapid) 10.3(H) <=5.6 % 07/21/2024 12:47 PM CDT [facility] Estimated Average Glucose (Calc) 249 < 117 mg/dL 07/21/2024 12:47 PM T [facility] Comment:Estimated average gl ucose (eAG) converts A1c into glucose units (mg/dL) and estimates average glucose over the past approximately 3 months. The eAG reference interval (<117 mg/dL) corresponds to an A1c of <5.7%. Blood Venipuncture / Unknown 07/21/2024 12:22 PM CDT 07/21/2024 12:22 PM CDT Narrative [facility] - 07/21/2024 12:47 PM CDT For [...] for further direction. Miriam Montanez MD LAB_1 [facility] [address] [place] [address] documented in this encounter Visit Diagnoses Diagnosis Uncontrolled type 2 diabetes mellitus with hyperglycemia (HRC) documented in this encounter Care Teams Roller Inspector And Mender Relationship Specialty [place] [address] [facility] [place] [address] PCP - General Family Practice 06/26/21 documented as of this encounter
--- OUTSIDE RECORDS SUMMARY | 2024-08-03 12:50 | XMS_ITS | Encounter Summary ---
Author Organization [facility] Address [address], [place] [address] Care Team Providers Care First Dyer Name Role Phone Miriam Montanez MD Primary Care Provider Encounter Details Date Type Department Care Team (Late st Contact Info) Description 07/06/2024 E-Visit Gastroenterology at [facility] at [address] [address] [place] [address] Social History Tobacco Use Types Packs/Day Years Used Date Smoking Tobacco: Every Day Cigarettes 1 48.3 Started: 04/28/1976 Smokeless Tobacco: Never Comments:Smoking History Pac ks/day: 1 pack Alcohol Use Standard Drinks/Week Comments No 0 (1 standard drink = 0.6 oz pur e alcohol) PHQ-2 Answer Date Recorded PHQ-2 Score 0 03/13/2023 Sex and Gender Information Value Date Recorded Sex Assigned at Not on file Gender Identity Not on file Sexual Orientation Not on file documented as of this encounter Plan of Treatment Upcoming Encounters Date Type Department Care Team (Late st Contact Info) Description 08/11/2024 3:00 PM CDT Appointment [facility] [address] [place] [address] 10/21/2024 2:30 PM HYDRO PLANT OPERATOR Appointment [facility] [address] [place] [address] [place] [address] [place] [address] 10/26/2024 1:45 PM HYDRO PLANT OPERATOR Appointment Rheumatology at [facility] [address] [facility] [address] [place] [address] Paulo Krishna MD [address] [place], [place] [address] 12/09/2024 1:50 PM HYDRO PLANT OPERATOR Appointment [facility] [address] [facility] [place], [place] 0[address] Dunia Lua MD [address] [place] [phone] documented as of this encounter Goals Goal Patient Goal Type Associated Problems Recent Progress Patient-Stated? Author Activity Diabetes Education No Sagrario Wagner, CRISTAL, LD, CDCES Note: 20 minutes activity daily documented as of this encounter Visit Diagnoses Not on filedocumented in this encounter Care Teams First Dyer Relationship Specialty [place] [address] [address] [place] [address] PCP - General Family Practice 06/26/21 documented as of this encounter
--- OUTSIDE RECORDS SUMMARY | 2024-08-03 12:50 | XMS_ITS | Encounter Summary ---
Author Organization [facility] Address [address], [place] [address] Care Team Providers Care Interactive Media Marketing Strategist Name Role Phone Miriam Montanez MD Primary Care Provider [phone] Reason for Visit * Reason Comments NURSE PREP FOR PROCEDURE Encounter Details Date Type Department Care Team (Late st Contact Info) Description 07/06/2024 Telephone Gastroenterology at [facility] at [address] [place], [place] [id number] Olga Brooks MD [address] [place] [address] [phone] NURSE PREP FOR PROCEDURE Social History Tobacco Use Types Packs/Day Years [...] as of this encounter Nursing Notes * Emmy Jaramillo RN - 07/06/2024 2:40 PM CDT Pt scheduled for colonoscopy on 07/14 in w/ Dr. Brooks. Pt has not had ht/wt updated in >365 days. Supercalender Operator attempted to contact pt for updated ht/wt, however, there was no answer. Most recent rheumatology note (04/15/24) indicates pt's BMI is >50. Sent pt MyChart advising of need to r/s to [facility] IN [facility]. VM also left for pt encouraging her to call back or check MyChart. Of note, pt also has other co-morbidities that would make pt best served at our [facility] location. LINDY with sats down to 79% and lower extremity weakness with wheelchair dependence if going longer distances documented in this encounter Plan of Treatment Upcoming Encounters Date Type Department Care Team (Late st Contact Info) Description 08/11/2024 3:00 PM CDT Appointment [facility] [address] [place] [address] 10/21/2024 2:30 PM BUTTON SEWER HAND Appointment [facility] [address] [place] [address] Miriam Montanez MD [address] [place] [address] [place] [address] 10/26/2024 1:45 PM BUTTON SEWER HAND Appointment Rheumatology at [facility] [address] [address] [place] [address] Paulo Krishna MD [address] [place] [address] 12/09/2024 1:50 PM BUTTON SEWER HAND Appointment Specialty Center [facility] [address] [place] [address]. [place], [place] 54[address] Dunia Lua MD [address] [place] [phone] documented as of this encounter Goals Goal Patient Goal Type Associated Problems Recent Progress Patient-Stated? Author Activity Diabetes Education No Sagrario Wagner, CRISTAL, LD, CDCES Note: 20 minutes activity daily documented as of this encounter Visit Diagnoses Not on filedocumented in this encounter Care Teams Interactive Media Marketing Strategist Relationship Specialty Start [place] [address] [place] [address] PCP - General Family Practice 06/26/21 documented as of this encounter
--- OUTSIDE RECORDS SUMMARY | 2024-08-03 12:50 | XMS_ITS | Encounter Summary ---
Author Organization [facility] ([facility]) Address [address] [place] [address] Care Team Providers Care Roll Forming Machine Set Up Mechanic Name Role Phone Miriam Montanez MD Primary Care Provider [phone] Reason for Referral * Procedure/Equipment (Routine) - Incomplete Specialty Diagnoses / Procedures Referred By Contac t Referred To Contact Diagnoses Tobacco abuse (HRC) Procedures CT Chest WO IV [place] [address] [place] [id number] Referral ID Status Reason Start Date Expiration Date V isits Requested Visits Authorized [id number] Incomplete 07/21/2024 10/20/2025 1 1 * Medication Prior Authorization - Pending Review Specialty Diagnoses / Procedures Referred By Contac t Referred To Contact Diagnoses Uncontrolled type 2 diabetes mellitus with hyperglycemia (HRC) BMI 45.0-49.9, adult (HRC) [place] [address] [place] [address] Referral ID Status Reason Start Date Expiration Date V isits Requested Visits Authorized [id number] Pending Review 1 1 Reason for Visit * Reason Comments Follow-up Encounter Details Date Type Department Care Team (Late st Contact Info) Description 07/21/2024 11:30 AM CDT Office Visit [facility] Medicine [address] [place], [place] [phone] [place] [address] [place] [phone] Uncontrolled type 2 diabetes mellitus with hyperglycemia (HRC) (Primary Dx); Agoraphobia with panic disorder (HRC); Chronic insomnia; Photosensitivity dermatitis; Tobacco abuse (HRC); Hyperlipidemia, unspecified hyperlipidemia type (HRC); BMI 45.0-49.9, adult (HRC) Social History Tobacco Use Types Packs/Day [...] [facility] in the [facility] were you homeless or living in a intermediate (including now)? No 07/20/2024 Sex and Gender Information Value Date Recorded Sex Assigned at Not on file Gender Identity Not on file Sexual Orientation Not on file documented as of this encounter Last Filed Vital Signs Vital Sign Reading Time Taken Comments Blood Pressure 113/65 07/21/2024 11:30 AM CDT Pulse 79 07/21/2024 11:30 AM CDT Temperature - - Respiratory Rate - - Oxygen Saturation - - Inhaled Oxygen Concentration - - Weight 117.9 kg (260 lb) 07/21/2024 11:30 AM CDT pt reported Height - - Body Mass Index 47.55 04/26/2023 2:14 PM CDT documented in this encounter Patient Instructions * Patient Instructions* Miriam Montanez MD - 07/21/2024 11:30 AM CDT Trial of wegovy. Let me know if issues with coverage/side effects. You can titrate up dose monthly if tolerated. If you have side effects with higher doses, let me know and we can keep you at a lowerdose. Referral for eye exam Referral for lung cancer screening Plan physical and diabetes check in 3 months. documented in this encounter Progress Notes * Miriam Montanez MD - 07/21/2024 11:30 AM CDT Chief Complaint Patient presents with Follow-up Too early for physical Pt is here for DM follow up -- A1c due. Has not been on trulicity since November due to availabilty Meds just on glipizide 10 mg. Fasting sugar 200 this morning Hemoglobin A1C Date Value Ref Range Status 02/10/2020 8.4 (H) <=5.6 % Final Hemoglobin A1C (Rapid) Date Value Ref Range Status 02/19/2024 8.3 (H) <=5.6 % Final Microalbuminuria Last eye exam [facility] in [place]. Had in June, normal per patient Smoker yes -- over due for lung cancer screening. HPL on crestor Cholesterol Date Value Ref Range Status 02/19/2024 226 (H) 0 - 199 mg/dL Final HDL Cholesterol Date Value Ref Range Status 02/19/2024 41 >=40 mg/dL Final LDL, Calculated Date Value Ref Range Status 02/19/2024 137 (H) <130 mg/dL Final Triglyceride Date Value Ref Range Status 02/19/2024 240 (H) <=149 mg/dL Final HTN no Patient Active Problem List Diagnosis Meralgia paresthetica Tobacco abuse ([facility]) Encounter for long-term (current) use of non-steroidal anti-inflammatories Morbid obesity with BMI of 50.0-59.9, adult ([facility]) Urinary incontinence, urge Primary osteoarthritis of both knees Hirsutism Fibromyalgia Weakness of both lower extremities Vitamin D deficiency ([facility]) HLD (hyperlipidemia) ([facility]) Chronic midline low back pain without sciatica Scoliosis Elevated coronary artery calcium score Class 3 severe obesity due to excess calories with body mass index (BMI) of 45.0 to 49.9 in adult ([facility]) Obstructive sleep apnea on CPAP Polycythemia Intraductal papilloma Uncontrolled type 2 diabetes mellitus with hyperglycemia ([facility]) Outpatient Medications Prior to Visit Medication Sig Dispense Refill Blood Glucose Monitoring Suppl (BLOOD GLUCOSE METER KIT) Use as directed. 1 Kit 0 celecoxib (CELEBREX) 200 MG capsule TAKE 1 CAPSULE(200 MG) BY MOUTH EVERY 24 HOURS NEEDED FOR PAIN 90 Capsule 3 mupirocin (BACTROBAN) 2 % ointment Apply topically two times a day. 30 g 2 omeprazole (PRILOSEC) 20 MG capsule Take 1 Capsule (20 mg) by mouth two times a day. Started at [facility] For duodenitis tiZANidine (ZANAFLEX) 2 MG tablet Take 1-2 Tablets by mouth at bedtime as needed (muscle spasms). 60 Tablet 3 blood glucose test strip Use 1 Each to test three times a day. 100 Strip 11 cetirizine (ZYRTEC) 10 MG tablet Take 1 Tablet (10 mg) by mouth daily. 90 Tablet 3 citalopram (CELEXA) 40 MG tablet TAKE 1 TABLET(40 MG) BY MOUTH DAILY 90 Tablet 3 dulaglutide (TRULICITY) 1.5 MG/0.5ML injection pen Inject 1.5 mg subcutaneously once a week. (Patient not taking: Reported on 07/21/2024) 6 mL 3 glipiZIDE XL (GLUCOTROL XL) 5 MG 24 hour release tablet Take 2 Tablets (10 mg) by mouth daily. 180 Tablet 3 lancets Use 1 Each to test three times a day. 100 Each 11 pimecrolimus (ELIDEL) 1 % cream Apply topically two times a day. to affected areas as directed 30 g0 rosuvastatin (CRESTOR) 40 MG tablet Take 1 Tablet (40 mg) by mouth daily. 90 Tablet 3 traZODone (DESYREL) 50 MG tablet Take 1-2 Tablets (50-100 mg) by mouth daily at bedtime. 180 Tablet3 No facility-administered medications prior to visit. BP 113/65 (BP Location: Left Arm, BP Cuff Size: Large) Pulse 79 Wt 260 lb (117.9 kg) Comment: pt reported LMP 10/27/2015 (Exact Date) BMI 47.55 kg/m?? Wt Readings from Last 3 Encounters: 07/21/24 260 lb (117.9 kg) 05/23/23 250 lb (113.4 kg) 03/13/23 258 lb (117 kg) EXAM: Gen: A&O, in NAD; sitting in scooter. HEENT: NCAT, non-icteric sclera Neck: supple, no LAD, no thyromegaly CV: RRR sans M Lungs: CTA B Ext: warm and well perfused, no CCE Psych: mood and affect wnl 1. Uncontrolled type 2 diabetes mellitus with hyperglycemia (HRC) - Hgb A1C; Future - Albumin/Creatinine Ratio,Random Urine; Future - semaglutide-weight management (WEGOVY) 0.25 MG/0.5ML pen injection; Inject 0.5 mL (0.25 mg) subcutaneously once a week for 28 days. Dispense: 2 mL; Refill: 0 - semaglutide-weight management (WEGOVY) 0.5 MG/0.5ML pen injection; Inject 0.5 mL (0.5 mg) subcutaneously once a week for 28 days. Do not start before August 18, 2024. Dispense: 2 mL; Refill: 0 - semaglutide-weight management (WEGOVY) 1 MG/0.5ML pen injection; Inject 0.5 mL (1 mg) subcutaneously once a week for 28 days. Do not start before September 15, 2024. Dispense: 2 mL; Refill: 0 - semaglutide-weight management (WEGOVY) 1.7 MG/0.75ML pen injection; Inject 0.75 mL (1.7 mg) subcutaneously once a week for 28 days. Do not start before October 13, 2024. Dispense: 3 mL; Refill: 0 - semaglutide-weight management (WEGOVY) 2.4 MG/0.75ML pen injection; Inject 0.75 mL (2.4 mg) subcutaneously once a week. Do not start before November 10, 2024. Dispense: 9.75 mL; Refill: 3 - blood glucose test strip; Use 1 Each to test three times a day. Dispense: 100 Strip; Refill: 11 - glipiZIDE XL (GLUCOTROL XL) 5 MG 24 hour release tablet; Take 2 Tablets (10 mg) by mouth daily. Dispense: 180 Tablet; Refill: 3 - lancets; Use 1 Each to test three times a day. Dispense: 100 Each; Refill: 11 2. Agoraphobia with panic disorder ([facility]) - citalopram (CELEXA) 40 MG tablet; Take 1 Tablet (40 mg) by mouth daily. Dispense: 90 Tablet; Refill: 3 3. Chronic insomnia - traZODone (DESYREL) 50 MG tablet; Take 1-2 Tablets (50-100 mg) by mouth daily at bedtime. Dispense: 180 Tablet; Refill: 3 4. Photosensitivity dermatitis - cetirizine (ZYRTEC) 10 MG tablet; Take 1 Tablet (10 mg) by mouth daily. Dispense: 90 Tablet; Refill: 3 5. Tobacco abuse ([facility]) - CT Chest WO IV Cont Lung Nodule; Future 6. Hyperlipidemia, unspecified hyperlipidemia type ([facility]) 7. BMI 45.0-49.9, adult ([facility]) - semaglutide-weight management (WEGOVY) 0.25 MG/0.5ML pen injection; Inject 0.5 mL (0.25 mg) subcutaneously once a week for 28 days. Dispense: 2 mL; Refill: 0 - semaglutide-weight management (WEGOVY) 0.5 MG/0.5ML pen injection; Inject 0.5 mL (0.5 mg) subcutaneously once a week for 28 days. Do not start before August 18, 2024. Dispense: 2 mL; Refill: 0 - semaglutide-weight management (WEGOVY) 1 MG/0.5ML pen injection; Inject 0.5 mL (1 mg) subcutaneously once a week for 28 days. Do not start before September 15, 2024. Dispense: 2 mL; Refill: 0 - semaglutide-weight management (WEGOVY) 1.7 MG/0.75ML pen injection; Inject 0.75 mL (1.7 mg) subcutaneously once a week for 28 days. Do not start before October 13, 2024. Dispense: 3 mL; Refill: 0 - semaglutide-weight management (WEGOVY) 2.4 MG/0.75ML pen injection; Inject 0.75 mL (2.4 mg) subcutaneously once a week. Do not start before November 10, 2024. Dispense: 9.75 mL; Refill: 3 Patient Instructions Trial of wegovy. Let me know if issues with coverage/side effects. You can titrate up dose monthly if tolerated. If you have side effects with higher doses, let me know and we can keep you at a lowerdose. Referral for eye exam Referral for lung cancer screening Plan physical and diabetes check in 3 months. documented in this encounter Plan of Treatment Upcoming Encounters Date Type Department Care Team (Late st Contact Info) Description 08/11/2024 3:00 PM CDT Appointment [facility] [address] [place] [address] 10/21/2024 2:30 PM ACCESS MANAGER Appointment [facility] [address] [place] [address] [place] [id number] [place] [address] [place] [address] 10/26/2024 1:45 PM ACCESS MANAGER Appointment Rheumatology at [facility] [address] [address] [place] [address] Paulo Krishna MD [facility] [place] [address] 12/09/2024 1:50 PM ACCESS MANAGER Appointment [facility] End[facility] [address] [facility]. [place], [place] [phone] Dunia Lua MD [address] [place] [phone] Scheduled Orders Name Type Priority Associated Diagnoses Orde r Schedule CT Chest WO IV Cont Lung Nodule Imaging New Routine Tobacco abuse (HRC) Expected: 07/21/2024 (Approximate), Expires: 07/21/2025 documented as of this encounter Goals Goal Patient Goal Type Associated Problems Recent Progress Patient-Stated? Author Activity Diabetes Education No Sagrario Wagner RDN, LD, [facility] [place] Note: 20 minutes activity daily documented as of this encounter Results * Albumin/Creatinine Ratio,Random Urine (07/21/2024 12:35 PM CDT) Pathologist [facility] Albumin/Creati nine Ratio, Urine, Random 6 <30 mg/g 07/21/2024 1:40 PM CDT [facility] Albumin, Urine, Random 10.0 mg/L 07/21/2024 1:40 PM CDT [facility] Creatinine, Urine, Random 174 >20 mg/dL mg/dL 07/21/2024 1:40 PM CDT [facility] Urine Non-blood Collection / Unknown 07/21/2024 12:35 PM CDT 07/21/2024 12:35 PM CDT Miriam Montanez MD LAB_1 [facility] [address] [place] [address], [facility] * (ABNORMAL) Hgb A1C (07/21/2024 12:22 PM CDT) Pathologist [facility] Hemoglobin A1C (Rapid) 10.3(H) <=5.6 % 07/21/2024 12:47 PM CDT [facility] Estimated Average Glucose (Calc) 249 < 117 mg/dL 07/21/2024 12:47 PM CDT [facility] Comment:Estimated average gl ucose (eAG) converts A1c into glucose units (mg/dL) and estimates average glucose over the past approximately 3 months. The eAG reference interval (<117 mg/dL) corresponds to an A1c of <5.7%. Blood Venipuncture / Unknown 07/21/2024 12:22 PM CDT 07/21/2024 12:22 PM CDT Narrative [facility] - 07/21/2024 12:47 PM CDT For [...] for further direction. Miriam Montanez MD LAB_1 [facility] [address] [place] [address], [facility] documented in this encounter Visit Diagnoses Diagnosis Uncontrolled type 2 diabetes mellitus with hyperglycemia (HRC)- Primary Agoraphobia with panic disorder ([facility]) Agoraphobia with panic disorder Chronic insomnia Insomnia, unspecified Photosensitivity dermatitis Acute dermatitis due to solar radiation Tobacco abuse ([facility]) Tobacco use disorder Hyperlipidemia, unspecified hyperlipidemia type ([facility]) BMI 45.0-49.9, adult ([facility]) Body Mass Index 45.0-49.9, adult documented in this encounter Care Teams Roll Forming Machine Set Up Mechanic Relationship Specialty Start [place] [address] [place] [address] PCP - General Family Practice 06/26/21 documented as of this encounter
--- OUTSIDE RECORDS SUMMARY | 2024-08-03 12:50 | XMS_ITS | Encounter Summary ---
Author Organization [facility] Address [address] [place] [address] Care Team Providers Care Clinical Field Specialist Name Role Phone Miriam Montanez MD Primary Care Provider [phone] Reason for Visit * Reason Comments Follow-up Encounter Details Date Type Department Care Team (Late st Contact Info) Description 07/20/2024 2:15 PM CDT Office Visit Rheumatology at [facility] [place] [address] [place] [phone] Paulo Krishna MD [address] [place], [place] [phone] Primary osteoarthritis of both knees (Primary Dx); Fibromyalgia; Class 3 severe obesity due to excess calories without serious comorbidity with body mass index (BMI) of 50.0 to 59.9 in adult (HRC); Carpal tunnel syndrome, left Social History Tobacco Use Types Packs/Day Years [...] were you homeless or living in a fci (including now)? No 07/20/2024 Sex and Gender Information Value Date Recorded Sex Assigned at Not on file Gender Identity Not on file Sexual Orientation Not on file documented as of this encounter Patient Instructions * Patient Instructions* Paulo Krishna MD - 07/20/2024 2:15 PM CDT You could try [facility] for an opinion for the knees or try [facility]. Recheck in 3 months. documented in this encounter Progress Notes * Paulo Krishna MD - 07/20/2024 2:15 PM CDT RHEUMATOLOGY RECHECK This note was generated with voice activated product development software and may contain typographical and word substitution errors. CC: Follow-up DJD of the knees, background history of fibromyalgia, chronic low back pain and scoliosis HPI: She has a history of DJD of the knees, prior cortisone and Synvisc injections, tramadol, tizanidine in the past. She has fibromyalgia and has failed gabapentin, Lyrica, Cymbalta, tramadol (itchy). She has been a smoker, has a mildly elevated hemoglobin. She has fairly severe DJD on x-rays. Shehas significant obesity, BMI over 50. Patient and I have discussed on numerous occasions going to bariatric to pursue weight loss surgery. She is not in favor of this. When having to go longer distances, she uses a wheelchair. Best approach for knee injections is a flexed knee lateral joint line approach. The patient has seen both Dr. Kathleen and Dr. Sarabia in Orthopedics, both which have declined to pursue total knee arthroplasty based on her BMI. I suggested perhaps she get another opinion at [facility], but they also declined based on her BMI. Therefore at this point unless she were tochange her mind and consider bariatric surgery she does not have any surgical options. She is on Celebrex, lab tests January, look satisfactory in terms of monitoring. At her visit in January, she was given bilateral knee cortisone +Synvisc injections. She has reported that the Synvisc injections make her knees feel too lubricated and in the future may not want to proceed with those. I did recommend another opinion at [facility] to see if they would offer her knee replacement. She checked with them and her BMI contraindicates. Generally, things are stable, her bought her a motorized scooter which allows for easier mobility particularly the doctor appointments. She does have a home shiatsu neck massage unit. She indicates she rarely if ever take Celebrex. At her visit in November,, she was having flare of fibromyalgia and myofascial pain in was given tizanidine and Celebrex p.r.n. We have found that doing the knee injections with her sitting upright and dangling the knees over the edge of the exam table works quite well. She states she really did not take the Celebrex. She decided to just give her left shoulder uprightcrocheting and symptoms have settled down. She does not really wish to pursue additional evaluationat this point such as an MRI. Her left shoulder bothers her with overhead and repetitive activities. The zwzd-[id number]-pseg-right knee are again bothering and she would like cortisone injections again. She did get some updated labs October 29, 2023, hemoglobin A1c 7.4%, normal creatinine, [id number], normal AST. At her visit in Apr, 2024 we injected both knees and there were also clinical symptoms of carpal tunnel syndrome, bracing was recommended with the additional options discussed. Interval history is reviewed. Unfortunately she did not feel the last set of cortisone injections helped. She was willing to reexplore total knee replacement. Her carpal tunnel syndrome is better after she stopped knitting baby blankets. SH: Has been a smoker PMH: Updated in EMR MEDS: Updated in EMR but notable for: Tizanidine p.r.n., trazodone, Celebrex 200 mg rarely taken ADR/ALLERGIES: Updated in EMR OBJECTIVE: VS: Per flow sheet. General: NAD. Significantly overweight Eyes: Externally clear. Musculoskeletal: Multiple myofascial tender points, left shoulder has good range of motion, positive impingement, pain with resisted activation of the supraspinatus, tenderness in the subacromial space, bilateral knees have crepitation but no effusions. ASSESSMENT: 1: Fibromyalgia and obesity 2: DJD of the knees, more severe on the left 3: Leg cramps 4: Left hip DJD, degenerative change at the pubic symphysis, lumbar degenerative disc disease and scoliosis 5: Neck pain 6: Left shoulder rotator cuff syndrome 7: Type 2 diabetes 8: Carpal tunnel syndrome, left PLAN: 1: She was severe DJD of the knees, has been turned down by couple of orthopedic surgeons because of obesity. She was going to seek a 3rd opinion possibly through [facility] or [facility]. I agree with her that she was in a catch 22 where because of her knee she can not exercise and becauseshe can not exercise she can not lose weight. 2: If she was turned down again, I think she will need to pursue bariatric surgery which she has been resistant to, has heard bad things but ultimately I think would be in her best interest. 3: We elected not to do any cortisone injections today, she would like to follow-up with me in 3 months sooner if problem arises. Questions answered, she was tearful today as we discussed these difficult and complex issues. TT 33 minutes documented in this encounter Plan of Treatment Upcoming Encounters Date Type Department Care Team (Late st Contact Info) Description 08/11/2024 3:00 PM CDT Appointment [facility] [address] [place] [phone] 10/21/2024 2:30 PM DINING SERVICE INSPECTOR Appointment [facility] [address] [place] [address] [place] [address] [place] [address] 10/26/2024 1:45 PM DINING SERVICE INSPECTOR Appointment Rheumatology at [facility] [address] [address] [place] [address] Paulo Krishna MD [address] [place], [place] [address] 12/09/2024 1:50 PM DINING SERVICE INSPECTOR Appointment Specialty Center [address] End[address] [facility]. [place], [place] [address] Dunia Lua MD [address] [place] [phone] documented as of this encounter Goals Goal Patient Goal Type Associated Problems Recent Progress Patient-Stated? Author Activity Diabetes Education No Sagrario Wagner, CRISTAL, LD, [facility] Note: 20 minutes activity daily documented as of this encounter Visit Diagnoses Diagnosis Primary osteoarthritis of both knees- Primary Primary localized osteoarthrosis, lower leg Fibromyalgia Mylagia and myositis, unspecified Class 3 severe obesity due to excess calories without serious comorbidity with body mass index (BMI) of 50.0 to 59.9 in adult ([facility]) Carpal tunnel syndrome, left Carpal tunnel syndrome documented in this encounter Care Teams Clinical Field Specialist Relationship Specialty Start Date End Date Miriam Montanez MD [address] [place] [address] [place] [address] PCP - General Family Practice 06/26/21 documented as of this encounter
--- OUTSIDE RECORDS SUMMARY | 2024-08-03 12:50 | XMS_ITS | Continuity of Care Document ---
Author Organization [facility] Address [address] [place] [address] Phone Care Team Providers Care Bagging Salvager Name Role Phone Will Estuardo HYDE Unavailable Unavailabl e Allergies, Adverse Reactions, Alerts Substance Reaction Status Criticality tramadol Burning red itching Active No Infor mation Medications Medication Instructions Dosage Effective Dates (start - stop) Status Comments citalopram 40 mg tablet take 1 tablet by oral route every day 40 MG - Active trazodone 50 mg tablet take 1 tablets by oral route every evening 1 tablets - Active Procedures Procedure Date OFFICE/OUTPATIENT VISIT, EST OFFICE/OUTPATIENT VISIT, EST OFFICE CONSULTATION Advance Directives Directive Yes / No Effective Date File Name No Information Encounters Encounter Description Practice Location Reason(s) For Visit Diagnoses Date Provider Providers Copied on Encounter [facility], [address] [place], [place], [id number] , [place] tel:[phone] [facility] No Information 2 Will Estuardo. [address] [place], [place], [id number] , [place]. tel: [phone] OFFICE/OUTPAT IENT VISIT, EST [facility], [address] [place], [place], [id number] , [place] tel:[phone] [facility] fibromyalgia (chief complaint) FibromyalgiaBi lateral primary osteoarthritis of knee [address] [facility] [place], [place], [id number] , [place]. tel:[phone] Referring Provider: Renetta Bustamante [facility] [address] [place], [address]. tel:[phone] OFFICE/OUTPAT IENT VISIT, EST [facility], [address] [place], [place], [id number] , [place] tel:[phone] [facility] Fibromyalgia (chief complaint) FibromyalgiaBi lateral primary osteoarthritis of knee [place] Ana María. [address] [place], [place], [id number] , [place]. tel:[phone] Referring Provider: Renetta Bustamante [facility] [address] [place], [address]. tel:[phone] OFFICE CONSULTATION [facility], [address] [place] [address], [id number] , [place] tel:[phone] [facility] fibromyalgia (chief complaint) FibromyalgiaBi lateral primary osteoarthritis of kneeLong term (current) use of opiate analgesic Gildardo Gotti. [address] [place], [place], [id number] , [place]. tel:[phone] Referring Provider: Renetta Bustamante [facility] [address] [place], [address]. tel:[phone] Family History Family Member Type Diagnosis Age At Onset Mother Problem (finding) Arthritis, Fibro Father Problem (finding) Arthritis Payers Payer name Insurance type Covered alliance party ID Authoranama susan[id number] Social History Type Description Quantity Date Captured Comments Sex Female Smoking Status No Information Chief Complaint And Reason For Visit No Information Reason For Referral Reason For Referral No Information History Of Present Illness Encounter Date Complaint History Of Prese nt Illness fibromyalgia Severity level i s moderate. Duration: chronic. The patient describes it as sharp, achy and burning. It occurs persistently. The problem is changing in character. Denies aggravating factors. Denies relieving factors. Pertinent negatives include diarrhea, fatigue, fever and incontinence (urinary). fibromyalgia (comments) Susy i s here for a followup and medication refill. She presents with #15 Tylenol #3- surplus. States will only use Tylenol #3 for severe pain, has not used any even though she felt she could of. Prefers not to take medication if able. Stopped Topamax d/t SE of confusion, forgetfullness, and drowsiness. Topamax was effective at relieving headache pain. Interested in starting pool therapy in the fall when daughter is back in school. Unable to take Lyrica or Savella d/t interaction with Citalopram. Fibromyalgia Severity level i s 8. Duration: chronic. Location of the pain is bilateral shoulder. The patient describes it as achy. It occurs persistently. The problem is fluctuating. Symptom is aggravated by bending, walking upstairs, walking downstairs, running, sitting, standing, walking, supine, twisting, prolonged positioning, housework and liftin. Relieving factors include rest. Associated symptoms include fatigue. Pertinent negatives include diarrhea, fever and incontinence (urinary). Fibromyalgia (comments) Susy stinson s here for a followup after initial consult. She is not currently prescribed opioid medications from [facility], however she would like [facility] to take over medication management. She started Topamax a week ago, SE of drowsiness, mild diarrhea, and nausea. Lidocaine helps relieving pain in her hands. Prefers not to take medication when not needed. She has been seeing a psychiatrist. She is unsure about starting PT d/t unpleasant previous PT experience. No other concerns today. fibromyalgia Onset occurred g radually. Severity level is 7-8. Duration: chronic. Location of the pain is lower back, mid back, upper back, bilateral shoulder, bilateral hand, bilateral knee, bl legs, bl arms and head. The patient describes it as achy, burning and stabbing. It occurs persistently. Symptom is aggravated by bending, walking upstairs, walking downstairs, running, sitting, standing, walking, changing positions, housework, lifting and movement. Relieving factors include rest. Associated symptoms include dyspnea and incontinence (urinary). Pertinent negatives include diarrhea and fever. fibromyalgia (comments) Susy stinson s here for an initial consult regarding widespread pain d/t fibromyalgia. She was referred to [facility] by Dr. Krishna. Pain begain in her mid-30s and about 5 years ago started having pain in her knees. Then pain in her hands and back d/t arthritis. She has DDD and bone spurs in her back. Her left knee was dislocated as a child and continues to dislocate now. Pain can cause her skin to be sensitive to touch.She went to 1 PT session 01/23/17, however did not complete d/t pain and swollen joints. During the summer she will go to her pool to complete exercises. Knee injections were previously tried and effective at relieving pain.Medications:Tried and failed Tramadol d/t SE of burning red face and all over itching. Functional Status Date Functional Assessmen t No Information Instructions Date Instruction Additional Infor mation No Information Assessments Type Assessment Date No Information Patient Care Teams Name Effective Dates (start - stop) Status Members No Information
--- OUTSIDE RECORDS SUMMARY | 2024-08-03 12:50 | XMS_ITS | Continuity of Care Document ---
Author Organization [facility] Address [address] [place] [address] Phone Care Team Providers Care Dollyman Name Role Phone Will Estuardo HYDE Unavailable [...] Diagnoses Date Provider Providers Copied on Encounter [facility], [address] [place], [place], [id number] , [place] [phone] [facility] No Information 2 Will Estuardo. [address] [place], [place], [id number] , [place]. tel: [phone] OFFICE/OUTPAT IENT VISIT, EST [facility], [address] [place], [place], [id number] , [place] tel:[phone] [facility] fibromyalgia (chief complaint) FibromyalgiaBi lateral primary osteoarthritis of knee 7 Gildardo Gotti. [address] [facility] [address] [place], [place], [id number] , [place]. tel:[phone] Referring Provider: Renetta Bustamante [facility] [address] [place], [address]. tel:[phone] OFFICE/OUTPAT IENT VISIT, EST [facility], [address] [place], [place], [id number] , [place] tel:[phone] [facility] Fibromyalgia (chief complaint) FibromyalgiaBi lateral primary osteoarthritis of knee [place] Ana María. [address] [place], [place], [id number] , [place]. tel:[phone] Referring Provider: Renetta Bustamante [facility] [address] [place], [address]. tel:[phone] OFFICE CONSULTATION [facility], [address] [place] [address], [id number] , [place] tel:[phone] [facility] fibromyalgia (chief complaint) FibromyalgiaBi lateral primary osteoarthritis of kneeLong term (current) use of opiate analgesic Gildardo Gotti. [address] [place], [place], [id number] , [place]. tel:[phone] Referring Provider: Renetta Bustamante [facility] [address] [place], [address]. tel:[phone] Family History Family Member Type Diagnosis Age At Onset Mother Problem (finding) Arthritis, Fibro Father Problem (finding) Arthritis Payers Payer name Insurance type Covered alliance party ID Authoranama susan(s) [facility] [id number] Social History Type Description Quantity Date Captured [...] is not currently prescribed opioid medications from [facility], however she would like [facility] to take over medication management. She started Topamax a week ago, SE of drowsiness, mild diarrhea, and nausea. Lidocaine helps relieving pain in her hands. Prefers not to take medication when not needed. She has been seeing a psychiatrist. She is unsure about starting PT d/t unpleasant previous PT experience. No other concerns today. fibromyalgia (comments) Susy stinson s here for an initial consult regarding widespread pain d/t fibromyalgia. She was referred to [facility] by Dr. Krishna. Pain begain in her [...] burning red face and all over itching. fibromyalgia Onset occurred g radually. Severity level [...] (urinary). Pertinent negatives include diarrhea and fever. Functional Status Date Functional Assessmen t No Information Instructions Date Instruction Additional Infor mation No Information Assessments Type Assessment Date No Information Patient Care Teams Name Effective Dates (start - stop) Status Members No Information
--- OUTSIDE RECORDS SUMMARY | 2024-08-03 12:50 | XMS_ITS | Encounter Summary ---
Author Organization [facility] Address [address], [place] [address] Care Team Providers Care Naval Surface Fire Support Planner Name Role Phone Miriam Montanez MD Primary Care Provider [phone] Encounter Details Date Type Department Care Team (Late st Contact Info) Description 07/06/2024 Notes/Orders Gastroenterology at [facility] at [address] [place], [place] [id number] Olga Brooks MD [address] [place] [phone] Social History Tobacco Use Types Packs/Day Years [...] Info) Description 08/11/2024 3:00 PM CDT Appointment [facility] [address] [place] [address] 10/21/2024 2:30 PM SPRING ASSEMBLER SUPERVISOR Appointment [facility] Medicine [address] [place] [address] [place] [address] [place] [address] 10/26/2024 1:45 PM SPRING ASSEMBLER SUPERVISOR Appointment Rheumatology at [facility] [address] [address] [place] [address] Paulo Krishna MD [address] [place], [place] [id number] 12/09/2024 1:50 PM SPRING ASSEMBLER SUPERVISOR Appointment [facility] [address] [facility] [facility] [place], [place] [address] Dunia Lua MD [address] [place] [phone] documented as of this encounter Goals Goal Patient Goal Type Associated Problems Recent Progress Patient-Stated? Author Activity Diabetes Education No Sagrario Wagner RDN, LD, CDCES Note: 20 minutes activity daily documented as of this encounter Visit Diagnoses Not on filedocumented in this encounter Care Teams Naval Surface Fire Support Planner Relationship Specialty Start Date End [place] [id number] [place] [address] [place] [address] PCP - General Family Practice 06/26/21 documented as of this encounter
--- OUTSIDE RECORDS SUMMARY | 2024-08-03 12:50 | XMS_ITS | Encounter Summary ---
Author Organization [facility] Address [address], [place] [address] Care Team Providers Care Deep Submergence Vehicle Operator Name Role Phone Miriam Montanez MD Primary Care Provider [phone] Encounter Details Date Type Department Care Team (Late st Contact Info) Description 07/10/2024 E-Visit [facility] [address] Pulmonary Medicine [address] [place] [address] [place], [place] [address] Social History Tobacco Use Types Packs/Day Years [...] Info) Description 08/11/2024 3:00 PM CDT Appointment [facility] [address] [place] [address] 10/21/2024 2:30 PM MISSILE INSPECTOR Appointment [facility] [address] [place] [address] [place] [address] [place] [address] 10/26/2024 1:45 PM MISSILE INSPECTOR Appointment Rheumatology at [facility] [place] [address] [facility] [address] [place] [address] Paulo Krishna MD [address] [place], [place] [address] 12/09/2024 1:50 PM MISSILE INSPECTOR Appointment [facility] [address] Endoscopy [address] [facility] [place], [place] [address] Dunia Lua MD [address] [place] [phone] documented as of this encounter Goals Goal Patient Goal Type Associated Problems Recent Progress Patient-Stated? Author Activity Diabetes Education No Sagrario Wagner, CRISTAL, LD, CDCES Note: 20 minutes activity daily documented as of this encounter Visit Diagnoses Not on filedocumented in this encounter Care Teams Deep Submergence Vehicle Operator Relationship Specialty Start [place] [address] [place] [address] PCP - General Family Practice 06/26/21 documented as of this encounter
[2024-08-03 12:57] LABS: Albumin* 4.4 g/dL (3.3-5.0); Chloride* 100 mmol/L (96-114); Sodium* 132 mmol/L (135-149)
[2024-08-03 12:58] LABS: Potassium* 4.1 mmol/L (3.6-5.1)
[2024-08-03 13:00] LABS: Alanine Aminotransferase* 24 U/L (4-35); Alkaline Phosphatase* 119 U/L (40-150); Anion Gap 7 mEq/L (7-15); Aspartate Amino Transferase* 23 U/L (12-35); Bilirubin Total* 0.4 mg/dL (0.1-1.5); Blood Urea Nitrogen* 13 mg/dL (7-30); Carbon Dioxide* 25 mmol/L (20-32); Creatinine* 0.6 mg/dL (0.5-1.5); Est. Creatinine Clearance* 47.01; Estimated Glomerular Filt Rate 100 ml/min; Glucose* 301 mg/dL (60-115); Total Protein* 7.8 g/dL (6.0-8.3)
[2024-08-03 13:23] LABS: Appearance Urine Clear (Clear); Bilirubin Urine Negative (Negative); Blood Urine Negative (Negative); Color Urine Yellow (Yellow); Glucose Urine 2+ (Negative); Ketones Urine Trace (Negative); Leukocyte Esterase Urine Negative (Negative); Nitrite Urine Negative (Negative); Protein Urine Negative (Negative); Specific Gravity Urine 1.015 (1.000-1.030); Urobilinogen Urine 0.2 (0.2-1.0); pH Urine 5.5 (5.0-8.5)
[2024-08-03] MEDS: HYDROmorphone 0.5 mg/0.5 ml inj IVP (14:00)
[2024-08-03] MEDS: LIDOCAINE 1% MDV 20 ML INJECTION (14:13)
--- NOTE | 2024-08-03 14:17 | PM.GSCN ---
History of Present Illness Consult details Date Seen: 08/03/24 Consult date: 08/03/24 Narrative: The patient is a 63-year-old female who has had approximately 9 days of perianal pain.. Is gotten progressively worse and she came in to be seen. She has not had any drainage. She has had a perianal abscess which was drained previously. She has also had recurrent cysts in her perineum. Wheelchair bound from severe osteoarthritis and does spend a large amount of time sitting. She is diabetic and blood sugars have not been well controlled recently because she has not been able to get all of her medication. [facility] Medical History CAD (coronary artery disease) ?I25.10 - Atherosclerotic heart disease of [place] coronary artery without angina pectoris (ICD-10) Fibromyalgia ?M79.7 - Fibromyalgia (ICD-10) Osteoarthritis ?M19.90 - Unspecified osteoarthritis, unspecified site (ICD-10) Diabetes 1.5, managed as type 2 ?E13.9 - Other specified diabetes mellitus without complications (ICD-10) Surgical History S/P ?Z98.891 - History of uterine scar from previous surgery (ICD-10) S/P appendectomy ?Z90.49 - Acquired absence of other specified parts of digestive tract (ICD-10) Social History Smoking Status: Current every day smoker What tobacco products do you use: cigarettes Smoking packs per day: 1 Smoking cigarettes per day: 20.0 Years smoked: 46 Smoking pack-years: 46.00 Do you use any of these nicotine containing products: None Second hand tobacco smoke exposure: No How often do you have a drink containing alcohol: never How often do you have six or more drinks on one occasion: Never AUDIT-C Alcohol total score: 0 Non-prescribed substance use: denies use service: No Meds Home Medications and Allergies Home Medications ?Medication ?Instructions ?Recorded ?Confirmed ?Type citalopram 40 mg tablet mg 08/18/22 12/10/23 History trazodone 50 mg tablet mg 08/18/22 12/10/23 History dulaglutide 1.5 mg/0.5 mL 1.5 mg subcut QWEEK 05/09/23 12/10/23 History subcutaneous pen injector (Trulicity) glipizide 10 mg tablet 10 mg PO QDAY 05/09/23 12/10/23 History cetirizine 10 mg tablet 10 mg PO DAILY 08/03/24 08/03/24 History glipizide 5 mg tablet, extended PO 08/03/24 History release 24 hr (Glucotrol XL) rosuvastatin 40 mg tablet 40 mg PO DAILY 08/03/24 08/03/24 History Allergies Allergy/AdvReac Type Severity Reaction Status Date / Time tramadol Allergy Mild itch Verified 08/03/24 12:13 Exam Narrative: Exam Narrative: General: No acute distress CV: Regular rate Skin: Perineal skin is dark and discolored throughout. There is scarring from prior folliculitis. She has a firm tender area in the left anterior. Digital rectal exam does not reveal any purulence or drainage. She is tender again in that location anterior to the left. Const: Vital Signs, click to edit/add: Vital Signs - 24 hr 08/03/24 12:07 Temperature 98.5 F Pulse Rate [Right Pulse Oximeter] 95 Respiratory Rate 18 Blood Pressure [Ri ght Upper Arm] 134/75 Pulse Oximetry 96 Oxygen Delivery Me thod Room Air Results Labs Labs: Abnormal lab results 08/03/24 08/03/24 Range/Units 12:35 13:18 WBC 12.88 H (4.50-11.00) K/uL Neut % (Auto) 72.2 H (42.0-72.0) % Lymph % (Auto) 19.5 L (20-44) % Neut # (Auto) 9.30 H (1.7-7.0) K/uL Sodium 132 L (135-149) mmol/L Glucose 301 H (60-115) mg/dL Urine Glucose (UA) 2+ A (Negative) Urine Ketones Trace A (Negative) Diabetes panel 08/03/24 Range/Units 12:35 Sodium 132 L (135-149) mmol/L Potassium 4.1 (3.6-5.1) mmol/L Chloride 100 (96-114) mmol/L Carbon Dioxide 25 (20-32) mmol/L BUN 13 (7-30) mg/dL Creatinine 0.6 (0.5-1.5) mg/dL Glucose 301 H (60-115) mg/dL Calcium 10.0 (8.4-10.6) mg/dL AST 23 (12-35) U/L ALT 24 (4-35) U/L Alkaline Phosphatase 119 (40-150) U/L Total Protein 7.8 (6.0-8.3) g/dL Albumin 4.4 (3.3-5.0) g/dL Calcium panel 08/03/24 Range/Units 12:35 Calcium 10.0 (8.4-10.6) mg/dL Albumin 4.4 (3.3-5.0) g/dL Pituitary panel 08/03/24 Range/Units 12:35 Sodium 132 L (135-149) mmol/L Potassium 4.1 (3.6-5.1) mmol/L Chloride 100 (96-114) mmol/L Carbon Dioxide 25 (20-32) mmol/L BUN 13 (7-30) mg/dL Creatinine 0.6 (0.5-1.5) mg/dL Glucose 301 H (60-115) mg/dL Calcium 10.0 (8.4-10.6) mg/dL Adrenal panel 08/03/24 Range/Units 12:35 Sodium 132 L (135-149) mmol/L Potassium 4.1 (3.6-5.1) mmol/L Chloride 100 (96-114) mmol/L Carbon Dioxide 25 (20-32) mmol/L BUN 13 (7-30) mg/dL Creatinine 0.6 (0.5-1.5) mg/dL Glucose 301 H (60-115) mg/dL Calcium 10.0 (8.4-10.6) mg/dL Total Bilirubin 0.4 (0.1-1.5) mg/dL AST 23 (12-35) U/L ALT 24 (4-35) U/L Alkaline Phosphatase 119 (40-150) U/L Total Protein 7.8 (6.0-8.3) g/dL Albumin 4.4 (3.3-5.0) g/dL All other labs normal. Imaging Abdomen CT scan report/results: report reviewed and image reviewed Additional studies: CT scan of the abdomen pelvis today: Impression: 3 cm perianal abscess. Sigmoid diverticulosis. No diverticulitis. Hepatomegaly and hepatic steatosis. Please note that all CT scans at this facility use dose modulation, iterative reconstruction, and/or weight-based dosing when appropriate to reduce radiation dose to as low as reasonably achievable. Dictated by Edil Lofton MD @ 08/03/2024 1:21:30 PM General Surgery Procedures I/D Type: abscess Site: precious-rectal Side (if applicable): left Sedation/analgesia: other (Dilaudid IV) Anesthetic used: lidocaine 1% Technique: incised with #11 blade Irrigation: Yes Packing used?: iodoform Progress Note:A&P Assessment and plan (1) Abscess, perianal: Status: Acute Plan The patient is a 63-year-old female. She has had recurrent abscesses in the perianal area as well as in her perineum. This was drained today at the bedside. Copious purulent material returned. This was cultured Reviewing the notes from her prior abscess that abscess appeared to have been posterior. I did tell her that she does have a risk of having a fistula since she has had a recurrence, however I encouraged her to get back on her diabetic medication and to get her blood sugar under control as this puts her at increased risk for recurrent infections. -culture obtained today - discharge patient home on antibiotics to cover for aerobes and anaerobes -patient instructed to remove packing tomorrow. Should use Sitz baths 3 times a day for pain and cleaning the area -she may follow-up in surgery clinic next week.
== END 2024-08-03 14:35 | disposition home or self-care (01) ==
PROVIDERS: Emergency Provider Internal Medicine
DX: K61.0 Anal abscess (principal); R10.9 Unspecified abdominal pain
CPT/HCPCS: 46050; 36415; 74177; 80053; 81003; 82565; 85025; 87070; 87186; 96374; 99283; 99285; J1170; Q9967

== ENCOUNTER 2025-01-13 10:03 | Inpatient (IN) | payer MEDICARE, OTHER, SELFPAY ==
[2025-01-13] VITALS (19 sets, daily range): BP systolic 103–129; BP diastolic 48–95; PULSE 77–104; RESP 20–26; TEMP 36.2–36.6; O2SAT 88–97; BMI 45.7; BMI 42.8
[2025-01-13 11:39] LABS: PCR FLU A POSITIVE PCR FLU A (Negative); PCR FLU B Negative PCR FLU B (Negative); PCR RSV Negative PCR RSV (Negative); SARS PCR* Negative SARS-CoV-2 (Negative)
--- NOTE | 2025-01-13 13:47 | ED.GENADULT ---
HPI - General Adult General Date Seen: 01/13/25 Chief complaint: Shortness of Breath/Dyspnea Stated complaint: SOB - Difficulty Breathing Time Seen by Provider: 01/13/25 13:47 History of Present Illness HPI narrative: 64 yo F a with history of tobacco use (but has not been smoking this week), fibromyalgia, type 2 diabetes, dyslipidemia, coronary artery disease. She presents to the ER today with concerns for diarrhea, cough, body aches, weakness. Symptoms began fiber 6 days ago last Saturday evening with diarrhea and the following day on Saturday she developed nasal congestion, sore throat, headache, body aches, cough. She has had a fairly persistent really bad cough ever since then and also shortness of breath. Cough is mostly nonproductive. No chest pain. She is having a fair amount of diarrhea but no vomiting. She has been able to drink fluids. She feels like she just not getting better. Her symptoms are not really worse today than they have been for the past couple days but they are not improving so she came here to the ER. No known sick exposures No swelling in her legs. She is a smoker but has not been smoking this week. She says that once several years ago she needed some nebs when she had pneumonia but she does not have any long-term diagnosis of asthma or COPD. Related Data Home Medications ?Medication ?Instructions ?Recorded ?Confirmed citalopram 40 mg tablet mg 08/18/22 10/01/24 trazodone 50 mg tablet mg 08/18/22 10/01/24 dulaglutide 1.5 mg/0.5 mL 1.5 mg subcut QWEEK 05/09/23 10/01/24 subcutaneous pen injector (Trulicity) glipizide 10 mg tablet 10 mg PO QDAY 05/09/23 10/01/24 glipizide 5 mg tablet, extended PO 08/03/24 10/01/24 release 24 hr (Glucotrol XL) Previous Rx's ?Medication ?Instructions ?Recorded amoxicillin 500 mg-potassium 1 tab PO BID #14 tabs 09/24/24 clavulanate 125 mg tablet (Augmentin) Allergies Allergy/AdvReac Type Severity Reaction Status Date / Time tramadol Allergy Mild itch Verified 10/01/24 13:53 PFSH PFS Medical History CAD (coronary artery disease) ?I25.10 - Atherosclerotic heart disease of [place] coronary artery without angina pectoris (ICD-10) Fibromyalgia ?M79.7 - Fibromyalgia (ICD-10) Osteoarthritis ?M19.90 - Unspecified osteoarthritis, unspecified site (ICD-10) Diabetes 1.5, managed as type 2 ?E13.9 - Other specified diabetes mellitus without complications (ICD-10) Surgical History S/P ?Z98.891 - History of uterine scar from previous surgery (ICD-10) S/P appendectomy ?Z90.49 - Acquired absence of other specified parts of digestive tract (ICD-10) Social History Smoking Status: Current every day smoker What tobacco products do you use: cigarettes Smoking packs per day: 1 Smoking cigarettes per day: 20.0 Years smoked: 46 Smoking pack-years: 46.00 Second hand tobacco smoke exposure: No How often do you have a drink containing alcohol: never How often do you have six or more drinks on one occasion: Never AUDIT-C Alcohol total score: 0 Non-prescribed substance use: denies use service: No Exam Narrative: Exam Narrative: Constitutional: Appears well-developed and well-nourished. Alert. Conversant. Sitting up in her wheelchair. Because of her baseline function she prefers to stay in the wheelchair rather than transfer to bed Non toxic. HENT: Head: Atraumatic. Nose: Nose normal. Mouth/Throat: Oral mucosa is clear and moist. no trismus. Pharynx normal. Tonsils symmetric. No tonsillar enlargement, erythema, or exudate. TMs normal bilaterally Eyes: Conjunctivae normal. EOM normal. Pupils equal, round, and reactive to light. No scleral icterus. Neck: Normal range of motion. Neck supple. No tracheal deviation present. E no JVD Cardiovascular: Normal rate, regular rhythm. No gallop. No friction rub. No murmur heard. Symmetric radial artery pulses Pulmonary/Chest: Effort normal. No stridor. No respiratory distress. Bilateral coarse wheezes and rhonchi. Diminished aeration bilaterally.. No tenderness. Abdominal: Exam was somewhat limited because she is sitting up in a wheelchair. Soft. No distension. No mass. No tenderness. No rebound. No guarding. Musculoskeletal: RUE: Normal range of motion. No tenderness. No deformity LUE: Normal range of motion. No tenderness. No deformity RLE: Normal range of motion. No edema. No tenderness. No deformity LLE: Normal range of motion. No edema. No tenderness. No deformity Neurological: Alert and oriented to person, place, and time. Normal strength. CN II-VII intact. No sensory deficit. GCS eye subscore is 4. GCS verbal subscore is 5. GCS motor subscore is 6. Normal coordination Skin: Skin is warm and dry. No rash noted. No pallor. Normal capillary refill. Psychiatric: Normal mood. Normal affect. Const: Vital Signs, click to edit/add: Vital Signs - 24 hr 01/13/25 10:45 01/13/25 14:00 01/13/25 14:02 Temperature 97.6 F Pulse Rate Pulse Rate [Pulse Oximeter] 98 104 H Respiratory Rate 26 H 20 Blood Pressure Blood Pressure [Le ft Upper Arm] 129/95 H Blood Pressure [Ri ght Upper Arm] 104/63 Pulse Oximetry 90 88 95 Oxygen Delivery Me thod Room Air Room Air Nasal Cannula Oxygen Flow Rate 2 01/13/25 17:15 01/13/25 17:22 01/13/25 17:25 Temperature Pulse Rate 92 Pulse Rate [Pulse Oximeter] 78 Respiratory Rate 20 Blood Pressure Blood Pressure [Le ft Upper Arm] 119/66 Blood Pressure [Ri ght Upper Arm] Pulse Oximetry 89 93 94 Oxygen Delivery Me thod Room Air Nasal Cannula Oxygen Flow Rate 3 01/13/25 17:30 01/13/25 17:32 01/13/25 17:33 Temperature Pulse Rate 93 96 94 Pulse Rate [Pulse Oximeter] Respiratory Rate Blood Pressure 123/76 Blood Pressure [Le ft Upper Arm] Blood Pressure [Ri ght Upper Arm] Pulse Oximetry 94 93 94 Oxygen Delivery Me thod Oxygen Flow Rate 01/13/25 17:45 01/13/25 18:00 01/13/25 18:02 Temperature Pulse Rate 96 95 94 Pulse Rate [Pulse Oximeter] Respiratory Rate Blood Pressure 112/83 Blood Pressure [Le ft Upper Arm] Blood Pressure [Ri ght Upper Arm] Pulse Oximetry 93 92 92 Oxygen Delivery Me thod Oxygen Flow Rate 01/13/25 18:15 Temperature Pulse Rate 96 Pulse Rate [Pulse Oximeter] Respiratory Rate Blood Pressure Blood Pressure [Le ft Upper Arm] Blood Pressure [Ri ght Upper Arm] Pulse Oximetry 93 Oxygen Delivery Me thod Oxygen Flow Rate Course Course ED Course: Patient seen and examined in ER room to. We discussed that she has influenza. Questionable pneumonia on x-ray but favored to be under penetration. Lung sounds are quite wheezy and diminished. She is a smoker but has not smoked in a few days. No history of COPD but suspect viral induced wheezing. Will try nebs. She says she strongly wants to go home Recheck-after 1st DuoNeb patient does not notice any improvement. Sats are up slightly kind of in the 88-90 range instead of more consistently 88-89. Lung sounds do reveal increased aeration and increased wheezing. Recheck-after 1st albuterol neb patient still does not notice any significant improvement. Still feels weak. A bit shaky after the neb. Lung sounds definitely improved with improved aeration and much more musical wheezes at this time. Sats still 89-90%. Recheck-after 2nd DuoNeb. Lung sounds are improved but still wheezy. Sats still about 90%, often drifting down to 89 but more consistently 90, occasionally 91. Patient feeling shaky. A bit nauseous now. Patient is changed her mind now. She would prefer to be admitted, and is now more concerned about her hypoxia that she was initially. I think it is reasonable to admit given her hypoxia, number of nebs she has required here in the ER with ongoing wheezing. Vital Signs Vital signs: Initial Vital Signs Temperature 97.6 F 01/13/25 10:45 Temperature Source Temporal Artery Scan 01/13/25 10:45 Pulse Rate 98 01/13/25 10:45 Respiratory Rate 26 H 01/13/25 10:45 Blood Pressure 104/63 01/13/25 10:45 Blood Pressure Mean 76 01/13/25 10:45 Pulse Oximetry 90 01/13/25 10:45 Oxygen Delivery Method Room Air 01/13/25 10:45 Vital Signs Temperature 97.6 F 01/13/25 10:45 Pulse Rate 98 01/13/25 10:45 Respiratory Rate 26 H 01/13/25 10:45 Blood Pressure 104/63 01/13/25 10:45 Pulse Oximetry 90 01/13/25 10:45 Oxygen Delivery Method Room Air 01/13/25 10:45 Temperature 97.6 F 01/13/25 10:45 Pulse Rate 96 01/13/25 18:15 Respiratory Rate 20 01/13/25 17:15 Blood Pressure 112/83 01/13/25 18:02 Pulse Oximetry 93 01/13/25 18:15 Oxygen Delivery Method Nasal Cannula 01/13/25 17:25 Oxygen Flow Rate 3 01/13/25 17:25 Medications Administered Medications: Discontinued Medications Generic Name Dose Route Start Last Admin Trade Name Freq PRN Reason Stop Dose Admin Albuterol 2.5 mg 01/13/25 15:27 01/13/25 15:33 Albuterol Sulfate 2.5 Mg/3 Ml Vial.Neb [facility] 01/13/25 15:28 2.5 mg ONCE ONE Administration Albuterol/Ipratropium 1 neb 01/13/25 14:02 01/13/25 14:13 Iprat-Albut 0.5-2.5 Mg/3 Ml [facility] 01/13/25 14:03 1 neb ONCE ONE Administration Albuterol/Ipratropium 1 banner 01/13/25 16:11 01/13/25 16:17 Iprat-Albut 0.5-2.5 Mg/3 Ml [facility] 01/13/25 16:12 1 neb ONCE ONE Administration Sodium Chloride 1,000 mls @ 1,000 mls/hr 01/13/25 17:00 01/13/25 17:30 0.9 % Sodium Chloride 1000 Ml IV 01/13/25 17:59 1,000 mls/hr .Q1H LORENZO Administration Ondansetron HCl 4 mg 01/13/25 16:51 01/13/25 17:30 Ondansetron 2 Mg/Ml Inj IVP 01/13/25 16:52 4 mg ONCE ONE Administration Oseltamivir Phosphate 75 mg 01/13/25 14:02 01/13/25 14:13 Oseltamivir Phosphate 75 Mg Capsule PO 01/13/25 14:03 75 mg ONCE ONE Administration Prednisone 40 mg 01/13/25 14:02 01/13/25 14:13 Prednisone 20 Mg Tablet PO 01/13/25 14:03 40 mg ONCE ONE Administration Medical Decision Making MDM Narrative Medical decision making narrative: This patient presents for evaluation of symptoms including shortness of breath, cough, fever and chills, body aches, diarrhea. For symptoms were actually 5 days ago on Saturday night with diarrhea. Respiratory symptoms began 4 days ago on Saturday.. Viral testing is positive for influenza A. There is no signs at this point of serious bacterial infection such as OM, RPA, epiglottitis, [employer], strep pharyngitis, sinusitis, meningitis. Chest x-ray does show questionable findings for possible pneumonia. However I would favor this is probably under penetrated rather than a true infiltrate. However, given her hypoxia, will treat with antibiotics for potential community acquired pneumonia as well. after discussion with hospitalist, doxycycline. Lung sounds were quite diminished and wheezy. Suspect that she is propping having viral induced wheezing triggered by influenza. She is a smoker but does not carry a formal diagnosis of COPD. Treated with steroids here in the ER. After multiple nebs, lung sounds are somewhat improved but still wheezy. Oxygen sats are up slightly from the mid upper 80s improved up to about 89-90% on room air. She still feels short of breath even after treatment. At this point mental status is normal. No signs of respiratory distress or fatigue breath she is going to require imminent positive pressure ventilation. Hospitalist requests that we get baseline VBG which I think is reasonable. Ordered here in the ER. Laboratory workup showes normal white blood cell count. She does have a hemoglobin of 16.5 but has a known history of polycythemia. Baseline hemoglobins have been 15.9, 16.3 prior. Metabolic profile shows normal sodium and potassium. Glucose 215. Anion gap slightly wide at 16 but bicarb normal at 21. She is not a type 1 diabetic. Troponin normal. EKG nonischemic and reveals sinus rhythm. Patient is accepted for admission by Dr. Swenson Lab Data Labs: Lab Results 01/13/25 01/13/25 Range/Units 10:50 17:10 WBC 6.73 (4.50-11.00) K/uL RBC 5.47 H (4.00-5.20) m/uL Hgb 16.5 H (12.0-16.0) gm/dL Hct 48.9 (33.0-51.0) % MCV 89 (80-100) fL MCH 30 (26-34) pg MCHC 34 (32-36) gm/dL RDW Coeff of Sudheer 12.6 (11.5-15.5) % Plt Count 176 (140-440) K/uL Neut % (Auto) 74.6 H (42.0-72.0) % Lymph % (Auto) 18.0 L (20-44) % [place] % (Auto) 6.7 (0.0-11.0) % Eos % (Auto) 0.0 (0.0-7.0) % Baso % (Auto) 0.3 (0.0-3.0) % Neut # (Auto) 5.00 (1.7-7.0) K/uL Lymph # (Auto) 1.20 (0.90-2.90) K/uL [place] # (Auto) 0.50 (0.00-0.90) K/UL Eos # (Auto) 0.00 (0.00-0.50) K/uL Baso # (Auto) 0.02 (0.00-0.30) K/uL Abs Immat Gran (auto) 0.03 (0.00-0.30) K/uL Imm/Tot Granulo (auto) 0.4 % Sodium 135 (135-149) mmol/L Potassium 3.7 (3.6-5.1) mmol/L Chloride 98 (96-114) mmol/L Carbon Dioxide 21 (20-32) mmol/L Anion Gap 16 H (7-15) mEq/L BUN 19 (7-30) mg/dL Creatinine 0.8 (0.5-1.5) mg/dL Estimated Creat Clear 44.36 Estimated GFR 82 ml/min Glucose 215 H (60-115) mg/dL Calcium 8.6 (8.4-10.6) mg/dL Troponin I < 0.01 L (0.01-0.04) ng/mL SARS-CoV-2 (PCR) Negative SARS-CoV-2 (Negative) Influenza Type A (PCR) POSITIVE PCR FLU A A (Negative) Influenza Type B (PCR) Negative PCR FLU B (Negative) RSV (PCR) Negative PCR RSV (Negative) Imaging Data Chest x-ray: Attestation: I have reviewed the pertinent imaging results. Radiologist's impression: IMPRESSION: Mild diffuse interstitial prominence, which may be artifactual, though mild pulmonary edema or atypical pneumonia could have a similar appearance. ECG Data Attestation: I personally reviewed and interpreted this ECG as follows: Interpretation: Normal sinus rhythm Rate: 97 MS: 158 QRS axis: Normal axis. Low voltage QRS ST segment/T wave: No ST segment elevation or depression. Nonspecific T-wave flattening. QTc: 464 Discharge Plan Discharge Clinical Impression: Influenza A, COPD exacerbation, Hypoxia, Pneumonia Patient Disposition: Admitted As Observation
[2025-01-13] MEDS: predniSONE 20 MG TABLET 40 MG PO (14:13)
[2025-01-13] MEDS: OSELTAMIVIR PHOSPHATE 75 MG CAPSULE PO (14:13)
[2025-01-13] MEDS: IPRAT-ALBUT 0.5-2.5 MG/3 ML NEB 1 NEB IH ×3 (14:13→23:22)
[2025-01-13] MEDS: ALBUTEROL SULFATE 2.5 MG/3 ML VIAL.NEB NEB (15:33)
[2025-01-13] MEDS: ONDANSETRON 2 MG/ML inj 4 MG IVP (17:30)
[2025-01-13] MEDS: 0.9 % SODIUM CHLORIDE 1000 ml 1,000 ML IV (17:30)
[2025-01-13 17:48] LABS: Chloride* 98 mmol/L (96-114)
[2025-01-13 17:49] LABS: Potassium* 3.7 mmol/L (3.6-5.1); Sodium* 135 mmol/L (135-149)
[2025-01-13 17:51] LABS: Creatinine* 0.8 mg/dL (0.5-1.5); Est. Creatinine Clearance* 44.36; Estimated Glomerular Filt Rate 82 ml/min
[2025-01-13 17:52] LABS: Anion Gap 16 mEq/L (7-15); Blood Urea Nitrogen* 19 mg/dL (7-30); Calcium* 8.6 mg/dL (8.4-10.6); Carbon Dioxide* 21 mmol/L (20-32); Glucose* 215 mg/dL (60-115)
[2025-01-13 18:08] LABS: Troponin I* < 0.01 ng/mL (0.01-0.04)
[2025-01-13 18:12] LABS: Basophils Absolute Auto 0.02 K/uL (0.00-0.30); Basophils Percent Auto 0.3 % (0.0-3.0); Hematocrit 48.9 % (33.0-51.0); Hemoglobin* 16.5 gm/dL (12.0-16.0); Immature Granulocytes Abs Auto 0.03 K/uL (0.00-0.30); Immature Granulocytes Pct Auto 0.4 %; Mean Corpuscular HGB Conc 34 gm/dL (32-36); Mean Corpuscular Hemoglobin 30 pg (26-34); Mean Corpuscular Volume 89 fL (80-100); Monocytes Percent Auto 6.7 % (0.0-11.0); Neutrophils Percent Auto 74.6 % (42.0-72.0); Platelet Count* 176 K/uL (140-440); RDW Coefficient of Variation % 12.6 % (11.5-15.5); Red Blood Count 5.47 m/uL (4.00-5.20); White Blood Count* 6.73 K/uL (4.50-11.00)
[2025-01-13 18:25] LABS: Slide Review Reflex No
[2025-01-13] MEDS: DOXYCYCLINE HYCLATE 100 MG PO (18:48)
[2025-01-13 18:49] LABS: HCO3 VBG 22 mmol/L (21-28); PCO2 VBG 38 mmHG (40-50); PO2 VBG 68.7 mmHG (25-47); pH VBG 7.378 (7.32-7.43)
--- NOTE | 2025-01-13 21:34 | PM.IMHP1 ---
Hospitalist- H&P: HPI History of Present Illness Time Seen by Provider: 21:34 Date Seen: 01/13/25 Chief complaint: SOB - Difficulty Breathing Narrative: Susy Navas is a 64 year old female with fibromyalgia, severe osteoarthritis and DMII who generally ambulates with a wheelchair who presented to the ER with shortness of breath. Susy reports that she started feeling ill about 6 days ago with diarrhea, then developed nasal congestion, URI and cough. She had fevers and malaise and noticed that she was waking up at night unable to breathe. She came in today because she wasn't really getting any better. Fortunately, her VS were reassuring with no sepsis, but she did have mild hypoxemia with SpO2 of 88% in the ER with wheezing. Although she has been a long time smoker, she does not have a COPD diagnosis and reports that she had PFTs done many years ago. She states that she just quit smoking when she got sick and is going to try to continue to avoid smoking from now on. She underwent labs and imaging in the ER which were notable for mildly elevated hgb at 16.5, but no leukocytosis. Mildly widened anion gap with normal bicarb and no acidosis on VBG. Her CXR showed some interstitial prominence which could represent atypical pneumonia vs pulmonary edema, although artifact could not be ruled out. She was treated with duonebs which helped some, but she was still needing some supplemental O2 to maintain SpO2>90%. Influenza A was positive on her respiratory panel and she was started on tamiflu despite time course of her illness. I additionally recommended adding doxycycline to her regimen and admission for further management. Patient reports that she has not had a fever today and her GI symptoms have improved. She denies chest pain, sore throat or any other symptoms at this time. Review of Systems Status of ROS: Reports: 10 or more systems reviewed and unremarkable except as noted in History and below [facility] Medical History CAD (coronary artery disease) ?I25.10 - Atherosclerotic heart disease of [place] coronary artery without angina pectoris (ICD-10) Fibromyalgia ?M79.7 - Fibromyalgia (ICD-10) Osteoarthritis ?M19.90 - Unspecified osteoarthritis, unspecified site (ICD-10) Diabetes 1.5, managed as type 2 ?E13.9 - Other specified diabetes mellitus without complications (ICD-10) Surgical History S/P ?Z98.891 - History of uterine scar from previous surgery (ICD-10) S/P appendectomy ?Z90.49 - Acquired absence of other specified parts of digestive tract (ICD-10) Social History Smoking Status: Current every day smoker What tobacco products do you use: cigarettes Smoking packs per day: 1 Smoking cigarettes per day: 20.0 Years smoked: 46 Smoking pack-years: 46.00 Second hand tobacco smoke exposure: No How often do you have a drink containing alcohol: never How often do you have six or more drinks on one occasion: Never AUDIT-C Alcohol total score: 0 Non-prescribed substance use: denies use service: No Meds Home Medications and Allergies Home Medications ?Medication ?Instructions ?Recorded ?Confirmed ?Type citalopram 40 mg tablet mg 08/18/22 10/01/24 History trazodone 50 mg tablet mg 08/18/22 10/01/24 History dulaglutide 1.5 mg/0.5 mL 1.5 mg subcut QWEEK 05/09/23 10/01/24 History subcutaneous pen injector (Trulicity) glipizide 10 mg tablet 10 mg PO QDAY 05/09/23 10/01/24 History glipizide 5 mg tablet, extended PO 08/03/24 10/01/24 History release 24 hr (Glucotrol XL) Allergies Allergy/AdvReac Type Severity Reaction Status Date / Time tramadol Allergy Mild itch Verified 10/01/24 13:53 Exam Narrative: Exam Narrative: General: Pleasant woman resting in bed, nontoxic appearing HEENT: Mild facial flushing, NCAT Resp: Breathing is comfortable, but not speaking in full sentences, prolonged expiratory phase with diffuse mild wheezing and occasional ronchi particularly in right lung CV: RRR, no m/g/r Abdomen: Obese, soft, nontender Extremities: No lower extremity edema. Neuro: Nonfocal, no lateralizing deficits Const: Vital Signs, click to edit/add: Vital Signs - 24 hr 01/13/25 10:45 01/13/25 14:00 01/13/25 14:02 Temperature 97.6 F Pulse Rate Pulse Rate [Pulse Oximeter] 98 104 H Respiratory Rate 26 H 20 Blood Pressure Blood Pressure [Le ft Upper Arm] 129/95 H Blood Pressure [Ri ght Arm] Blood Pressure [Ri ght Upper Arm] 104/63 Pulse Oximetry 90 88 95 Oxygen Delivery Me thod Room Air Room Air Nasal Cannula Oxygen Flow Rate 2 01/13/25 17:15 01/13/25 17:22 01/13/25 17:25 Temperature Pulse Rate 92 Pulse Rate [Pulse Oximeter] 78 Respiratory Rate 20 Blood Pressure Blood Pressure [Le ft Upper Arm] 119/66 Blood Pressure [Ri ght Arm] Blood Pressure [Ri ght Upper Arm] Pulse Oximetry 89 93 94 Oxygen Delivery Me thod Room Air Nasal Cannula Oxygen Flow Rate 3 01/13/25 17:30 01/13/25 17:32 01/13/25 17:33 Temperature Pulse Rate 93 96 94 Pulse Rate [Pulse Oximeter] Respiratory Rate Blood Pressure 123/76 Blood Pressure [Le ft Upper Arm] Blood Pressure [Ri ght Arm] Blood Pressure [Ri ght Upper Arm] Pulse Oximetry 94 93 94 Oxygen Delivery Me thod Oxygen Flow Rate 01/13/25 17:45 01/13/25 18:00 01/13/25 18:02 Temperature Pulse Rate 96 95 94 Pulse Rate [Pulse Oximeter] Respiratory Rate Blood Pressure 112/83 Blood Pressure [Le ft Upper Arm] Blood Pressure [Ri ght Arm] Blood Pressure [Ri ght Upper Arm] Pulse Oximetry 93 92 92 Oxygen Delivery Me thod Oxygen Flow Rate 01/13/25 18:15 01/13/25 18:30 01/13/25 18:34 Temperature Pulse Rate 96 92 95 Pulse Rate [Pulse Oximeter] Respiratory Rate Blood Pressure Blood Pressure [Le ft Upper Arm] Blood Pressure [Ri ght Arm] Blood Pressure [Ri ght Upper Arm] Pulse Oximetry 93 95 94 Oxygen Delivery Me thod Oxygen Flow Rate 01/13/25 18:45 01/13/25 19:00 01/13/25 20:02 Temperature 97.1 F L Pulse Rate 96 95 Pulse Rate [Pulse Oximeter] 94 Respiratory Rate 20 Blood Pressure Blood Pressure [Le ft Upper Arm] Blood Pressure [Ri ght Arm] 104/60 Blood Pressure [Ri ght Upper Arm] Pulse Oximetry 94 94 97 Oxygen Delivery Me thod Nasal Cannula Oxygen Flow Rate 2 Hospitalist - H&P: Result Labs Labs: Short CBC 01/13/25 Range/Units 17:10 WBC 6.73 (4.50-11.00) K/uL Hgb 16.5 H (12.0-16.0) gm/dL Hct 48.9 (33.0-51.0) % Plt Count 176 (140-440) K/uL BMP 01/13/25 17:10 Sodium 135 Potassium 3.7 Chloride 98 Carbon Dioxide 21 BUN 19 Creatinine 0.8 Glucose 215 H Calcium 8.6 Cardiac Enzymes 01/13/25 Range/Units 17:10 Troponin I < 0.01 L (0.01-0.04) ng/mL Assessment and Plan Assessment and plan (1) Hypoxia: Status: Acute Assessment and Plan: Not technically meeting acute respiratory failure criteria as she did not present with any respiratory distress, but SpO2 was lower than 90% on RA. Currently on 2-3 LPM and sats improved. Most likely secondary to influenza with possible superimposed bacterial pneumonia, but also suspect patient has underlying COPD given her extensive smoking history (greater than 25 pack year history, smoking for 50 years) and likely has exacerbation with her wheezing at this time. No CO2 retention on VBG -Continue supplemental O2, wean as able (2) Influenza A: Status: Acute Assessment and Plan: Patient has been symptomatic for 5-6 days with GI upset, now chest congestion, cough and SOB. -Reasonable to continue Tamiflu in the hospital, but would not necessarily continue on discharge -Supportive cares (3) Pneumonia: Status: Acute Assessment and Plan: Diffuse interstitial changes on CXR. She does not have a leukocytosis and is positive for influenza A. However, with acute worsening and hypoxia 5-6 days into influenza, would be concerned about potential superimposed bacterial pneumonia. No sepsis. -Continue doxycycline for 5 day course (4) COPD exacerbation: Status: Acute Assessment and Plan: No formal diagnosis of COPD, but extensive smoking history. She just quit and is committed to not smoke any more. She is encouraged in her efforts. Remote history of normal PFTs per patient. She is currently wheezing and likely has COPD exacerbation -Continue duonebs -Steroids: prednisone 40mg for 5 days -Antibiotics: Doxycycline -Consider albuterol HFA on discharge -Recommend repeating formal PFTs at pulmonary clinic as an outpatient (5) DMII (diabetes mellitus, type 2): Status: Acute Assessment and Plan: Glucose elevated on admission. Not on insulin at baseline. Typically uses Trulicity and glipizide, but glipizide dose somewhat unclear at this time. Anticipate hyperglycemia with steroids -Sliding scale insulin while in hospital with steroids -Check Hgb A1C Plan Admit to medical floor Duonebs Prednisone 40 mg daily Doxycycline 100 mg PO BID Tamiflu 75 mg BID (OK to discontinue if side effects) Wean O2 as able Monitor labs/vitals Enoxaparin for DVT prophy FULL code Total Time Spent Total Time Spent: 60 minutes spent on chart review, interview and physical exam, counseling patient, orders, documentation
[2025-01-13] MEDS: BENZONATATE 100 MG CAPSULE 200 MG PO (22:14)
[2025-01-13] MEDS: guaiFENesin 600 MG TAB.ER.12H 1200 MG PO (22:15)
[2025-01-13] MEDS: INSULIN ASPART 100 UNIT/ML SUBCUT (23:35)
[2025-01-14 03:00] VITALS: BP 100/62; PULSE 71; RESP 20; TEMP 36.7; O2SAT 93
[2025-01-14] MEDS: IPRAT-ALBUT 0.5-2.5 MG/3 ML NEB 1 NEB IH (05:11)
[2025-01-14 05:25] VITALS: PULSE 77
--- NOTE | 2025-01-14 06:02 | PC.NURSE ---
Shift note ([id number]): Patient admitted from ED at 1954. Pleasant, alert and oriented. Transferred to electric wheelchair and toilet with stand by assist of one. Reports SOB with exertion. O2 sats 93-96% on 2 LPM. Denies pain. ?
[2025-01-14 06:54] LABS: Basophils Absolute Auto 0.02 K/uL (0.00-0.30); Basophils Percent Auto 0.4 % (0.0-3.0); Hematocrit 42.4 % (33.0-51.0); Hemoglobin* 14.4 gm/dL (12.0-16.0); Immature Granulocytes Abs Auto 0.02 K/uL (0.00-0.30); Immature Granulocytes Pct Auto 0.4 %; Lymphocytes Absolute Auto 1.99 K/uL (0.90-2.90); Lymphocytes Percent Auto 39.6 % (20-44); Mean Corpuscular HGB Conc 34 gm/dL (32-36); Mean Corpuscular Hemoglobin 30 pg (26-34); Mean Corpuscular Volume 89 fL (80-100); Monocytes Percent Auto 12.9 % (0.0-11.0); Neutrophils Absolute Auto 2.34 K/uL (1.7-7.0); Neutrophils Percent Auto 46.7 % (42.0-72.0); Platelet Count* 154 K/uL (140-440); RDW Coefficient of Variation % 12.4 % (11.5-15.5); Red Blood Count 4.77 m/uL (4.00-5.20); White Blood Count* 5.02 K/uL (4.50-11.00)
[2025-01-14 06:55] LABS: Slide Review Reflex No
[2025-01-14 07:06] LABS: Albumin* 3.7 g/dL (3.3-5.0); Chloride* 102 mmol/L (96-114); Potassium* 3.4 mmol/L (3.6-5.1); Sodium* 137 mmol/L (135-149)
[2025-01-14 07:08] LABS: Aspartate Amino Transferase* 31 U/L (12-35); Creatinine* 0.6 mg/dL (0.5-1.5); Est. Creatinine Clearance* 44.36; Estimated Glomerular Filt Rate 100 ml/min
[2025-01-14 07:09] LABS: Alanine Aminotransferase* 33 U/L (4-35); Alkaline Phosphatase* 70 U/L (40-150); Anion Gap 9 mEq/L (7-15); Bilirubin Total* 0.5 mg/dL (0.1-1.5); Blood Urea Nitrogen* 16 mg/dL (7-30); Calcium* 8.3 mg/dL (8.4-10.6); Carbon Dioxide* 26 mmol/L (20-32); Glucose* 205 mg/dL (60-115); Total Protein* 6.6 g/dL (6.0-8.3)
[2025-01-14 07:19] VITALS: PULSE 77
[2025-01-14 07:20] LABS: Hemoglobin A1C* 8.4 % (0-5.6)
[2025-01-14 07:22] LABS: Procalcitonin* 0.09 ng/mL (<0.50)
[2025-01-14] MEDS: predniSONE 20 MG TABLET 40 MG PO (07:52)
[2025-01-14 08:00] VITALS: BP 123/75; PULSE 82; RESP 20; TEMP 36.6; O2SAT 98
[2025-01-14] MEDS: INSULIN ASPART 100 UNIT/ML SUBCUT (08:17)
[2025-01-14] MEDS: SODIUM CHLORIDE 0.9 % (FLUSH) 10 ML SYRINGE 5 ML IVF (09:21)
[2025-01-14] MEDS: DOXYCYCLINE HYCLATE 100 MG PO (09:22)
[2025-01-14] MEDS: guaiFENesin 600 MG TAB.ER.12H 1200 MG PO (09:22)
[2025-01-14] MEDS: BENZONATATE 100 MG CAPSULE 200 MG PO (09:22)
[2025-01-14] MEDS: OSELTAMIVIR PHOSPHATE 75 MG CAPSULE PO (09:22)
--- NOTE | 2025-01-14 10:45 | PM.DS1 ---
DS: Providers Provider Date Seen: 01/14/25 Date of admission: 01/13/25 19:52 Primary care physician: Not a Local Provider Admitting Clinician: Ratna Swenson MD Consults: SW, PT, OT Attending Physician on discharge: Brandee Villarreal MD Date of Discharge: 01/14/25 DS: Diagnosis Discharge Diagnosis (1) Hypoxia: Status: Acute Problem details: - required supplemental O2 on admission, stable on RA day 2 and ready for d/c home - combination of COPD exacerbation, Influenza A, atypical PNA, untreated LINDY (2) Influenza A: Status: Acute Problem details: - treated with Tamiflu, remained afebrile (3) Pneumonia: Status: Acute Problem details: - atypical on admission CXR, afebrile with normal WBC and Procalcitonin (4) COPD exacerbation: Status: Acute Problem details: - treated with nebs, steroids, Doxycycline - (5) DMII (diabetes mellitus, type 2): Status: Acute Problem details: - A1C 8.4, BG 161-258 - outpatient f/u, continue home medications DS: Summary Hospital Course Hospital Course: Susy was admitted to the hospital on 01/13 for acute hypoxic respiratory failure in the setting of COPD exacerbation, Influenza A, atypical PNA. Treated with Steroids, Nebs, Doxycycline with improvement in symptoms on hospital day 2, stable on RA and appropriate for d/c home. Comorbities noted above, stable. No changes made to home medications. She is motivated to quit smoking upon discharge. Discharging home on 01/14 with Nebulizer treatments, Doxycycline, Tamiflu, New Rx for Breo Ellipta. Time spent discussing smoking cessation with patient: 3 to 10 minutes Status at Discharge Functional status at discharge: wheelchair bound Time Spent with Patient Time attestation: Total time spent providing and/or coordinating discharge services: Time spent: Greater than 30 minutes Specific discharge activities: Medication reconciliation, multidisciplinary team management, RT collaboration Exam Narrative: Exam Narrative: For GEN: Alert and oriented, sitting comfortably in bed and speaking in full sentences HEENT: EOMIs bilaterally, no scleral icterus CV: RRR, No concerning murmurs R: Bibasilar wheezing, mild rhonchi, no tachypnea Ext: wwp, no concerning edema Skin: No concerning skin lesions or rashes on exposed skin Psych: Appropriate Const: Vital Signs, click to edit/add: Vital Signs - 24 hr 01/13/25 14:00 01/13/25 14:02 01/13/25 17:15 Temperature Pulse Rate Pulse Rate [Pulse Oximeter] 104 H 78 Respiratory Rate 20 20 Blood Pressure Blood Pressure [Le ft Upper Arm] 129/95 H 119/66 Blood Pressure [Ri ght Arm] Pulse Oximetry 88 95 89 Oxygen Delivery Me thod Room Air Nasal Cannula Room Air Oxygen Flow Rate 2 01/13/25 17:22 01/13/25 17:25 01/13/25 17:30 Temperature Pulse Rate 92 93 Pulse Rate [Pulse Oximeter] Respiratory Rate Blood Pressure Blood Pressure [Le ft Upper Arm] Blood Pressure [Ri ght Arm] Pulse Oximetry 93 94 94 Oxygen Delivery Me thod Nasal Cannula Oxygen Flow Rate 3 01/13/25 17:32 01/13/25 17:33 01/13/25 17:45 Temperature Pulse Rate 96 94 96 Pulse Rate [Pulse Oximeter] Respiratory Rate Blood Pressure 123/76 Blood Pressure [Le ft Upper Arm] Blood Pressure [Ri ght Arm] Pulse Oximetry 93 94 93 Oxygen Delivery Me thod Oxygen Flow Rate 01/13/25 18:00 01/13/25 18:02 01/13/25 18:15 Temperature Pulse Rate 95 94 96 Pulse Rate [Pulse Oximeter] Respiratory Rate Blood Pressure 112/83 Blood Pressure [Le ft Upper Arm] Blood Pressure [Ri ght Arm] Pulse Oximetry 92 92 93 Oxygen Delivery Me thod Oxygen Flow Rate 01/13/25 18:30 01/13/25 18:34 01/13/25 18:45 Temperature Pulse Rate 92 95 96 Pulse Rate [Pulse Oximeter] Respiratory Rate Blood Pressure Blood Pressure [Le ft Upper Arm] Blood Pressure [Ri ght Arm] Pulse Oximetry 95 94 94 Oxygen Delivery Me thod Oxygen Flow Rate 01/13/25 19:00 01/13/25 20:02 01/13/25 20:02 Temperature 97.1 F L Pulse Rate 95 Pulse Rate [Pulse Oximeter] 94 Respiratory Rate 20 Blood Pressure Blood Pressure [Le ft Upper Arm] Blood Pressure [Ri ght Arm] 104/60 Pulse Oximetry 94 97 Oxygen Delivery Me thod Nasal Cannula Nasal Cannula Oxygen Flow Rate 2 2 01/13/25 23:00 01/13/25 23:00 01/13/25 23:00 Temperature 97.8 F Pulse Rate Pulse Rate [Pulse Oximeter] 77 Respiratory Rate 20 20 Blood Pressure Blood Pressure [Le ft Upper Arm] Blood Pressure [Ri ght Arm] 103/48 L Pulse Oximetry 96 96 96 Oxygen Delivery Me thod Nasal Cannula Nasal Cannula Oxygen Flow Rate 2 2 01/14/25 03:00 01/14/25 05:25 01/14/25 07:19 Temperature 98.1 F Pulse Rate 77 77 Pulse Rate [Pulse Oximeter] 71 Respiratory Rate 20 Blood Pressure Blood Pressure [Le ft Upper Arm] Blood Pressure [Ri ght Arm] 100/62 Pulse Oximetry 93 Oxygen Delivery Me thod Nasal Cannula Oxygen Flow Rate 2 01/14/25 08:00 Temperature 97.8 F Pulse Rate Pulse Rate [Pulse Oximeter] 82 Respiratory Rate 20 Blood Pressure Blood Pressure [Le ft Upper Arm] Blood Pressure [Ri ght Arm] 123/75 Pulse Oximetry 98 Oxygen Delivery Me thod Room Air Oxygen Flow Rate DS: Data Data Completed and Pending Labs on day of discharge: Labs from last 24 hours 01/14/25 01/13/25 01/13/25 06:00 18:45 17:10 WBC 5.02 6.73 RBC 4.77 5.47 H Hgb 14.4 16.5 H Hct 42.4 48.9 MCV 89 89 MCH 30 30 MCHC 34 34 RDW Coeff of Sudheer 12.4 12.6 Plt Count 154 176 Neut % (Auto) 46.7 74.6 H Lymph % (Auto) 39.6 18.0 L [place] % (Auto) 12.9 H 6.7 Eos % (Auto) 0.0 0.0 Baso % (Auto) 0.4 0.3 Neut # (Auto) 2.34 5.00 Lymph # (Auto) 1.99 1.20 [place] # (Auto) 0.60 0.50 Eos # (Auto) 0.00 0.00 Baso # (Auto) 0.02 0.02 Abs Immat Gran (auto) 0.02 0.03 Imm/Tot Granulo (auto) 0.4 0.4 VBG pH 7.378 VBG pCO2 38 L VBG pO2 68.7 H VBG HCO3 22 Sodium 137 135 Potassium 3.4 L 3.7 Chloride 102 98 Carbon Dioxide 26 21 Anion Gap 9 16 H BUN 16 19 Creatinine 0.6 0.8 Estimated Creat Clear 44.36 44.36 Estimated GFR 100 82 Glucose 205 H 215 H Hemoglobin A1c 8.4 H Calcium 8.3 L 8.6 Total Bilirubin 0.5 AST 31 ALT 33 Alkaline Phosphatase 70 Troponin I < 0.01 L Total Protein 6.6 Albumin 3.7 Procalcitonin 0.09 SARS-CoV-2 (PCR) Influenza Type A (PCR) Influenza Type B (PCR) RSV (PCR) 01/13/25 10:50 WBC RBC Hgb Hct MCV MCH MCHC RDW Coeff of Sudheer Plt Count Neut % (Auto) Lymph % (Auto) [place] % (Auto) Eos % (Auto) Baso % (Auto) Neut # (Auto) Lymph # (Auto) [place] # (Auto) Eos # (Auto) Baso # (Auto) Abs Immat Gran (auto) Imm/Tot Granulo (auto) VBG pH VBG pCO2 VBG pO2 VBG HCO3 Sodium Potassium Chloride Carbon Dioxide Anion Gap BUN Creatinine Estimated Creat Clear Estimated GFR Glucose Hemoglobin A1c Calcium Total Bilirubin AST ALT Alkaline Phosphatase Troponin I Total Protein Albumin Procalcitonin SARS-CoV-2 (PCR) Negative SARS-CoV-2 Influenza Type A (PCR) POSITIVE PCR FLU A A Influenza Type B (PCR) Negative PCR FLU B RSV (PCR) Negative PCR RSV Discharge Plan Discharge Disposition: Home, Self-Care Date of Admission: 01/13/25 19:52 Attending Provider on Discharge: Brandee Villarreal Primary Care Provider: Provider,Not a Local Condition: Improved Anticipated Discharge Date/Time: 01/14/25 10:08 Discharge Medications: New ipratropium-albuterol 0.5 mg-3 mg(2.5 mg base)/3 mL Solution For Nebulization 3 ml inhalation Q6H Qty: 90 0RF prednisone 20 mg Tablet 40 mg PO DAILYWM 3 Days Qty: 6 0RF benzonatate 100 mg Capsule 200 mg PO TID PRN (Reason: cough) Qty: 20 0RF oseltamivir 75 mg Capsule 75 mg PO BID 4 Days Qty: 8 0RF doxycycline hyclate 100 mg Tablet 100 mg PO BID 5 Days Qty: 10 0RF fluticasone furoate-vilanterol [Breo Ellipta] 100-25 mcg/dose blister with device 1 inh inhalation DAILY Qty: 60 2RF (DME) nebulizer and compressor Device See Rx Instructions .Route Qty: 1 0RF Rx Instructions: As directed for use during COPD exacerbation. Dx J44.9 Please supply nebulizer machine + accessories. Duonebs sent as separate Rx Continued Trulicity 1.5 mg/0.5 mL pen injector 1.5 mg subcut QWEEK citalopram 40 mg tablet 40 mg PO DAILY trazodone 50 mg tablet 50 - 100 mg PO HS glipizide [Glucotrol XL] 5 mg tablet extended release 24hr 10 mg PO DAILY rosuvastatin 40 mg tablet 40 mg PO DAILY Discharge Orders: Discharge Order (Routine); Ordered 01/14/25 Ordered By: Brandee Villarreal Patient Education: Benzonatate (By mouth), Doxycycline (By mouth), Prednisone (By mouth), Fluticasone (By breathing), Ipratropium/Albuterol (By breathing), Oseltamivir (By mouth), Influenza (DC), COPD (Chronic Obstructive Pulmonary Disease) (DC), How to Use a Nebulizer (DC) Additional Instructions: Medication changes: - FINISH courses of Tamiflu, Doxycycline, and Prednisone - NEW medications: Duonebs + Nebulizer, Breo once daily inhaler for COPD See Dr. Pizano in f/u to discuss recent stay + COPD + DM2 + a new sleep study. Keep up the good work with smoking cessation! Activity Level: Activity as Tolerated Discharge Diet: Diabetic Follow Up Appointments: Provider,Not a Local [Primary Care Provider] - Keyana Pathak PA-C [Physician Waiter Waitress] - 01/21/25 1:00 pm ([facility] new patient, hospital d/c follow-up.) Flora Pizano MD [Staff Physician] - (appt in 7-10 days please (new patient, hospital d/c followup)) Forms: [employer] Info Instructions
--- NOTE | 2025-01-14 11:06 | REH.PT ---
PT mobility screen of pt. Pt uses a electric w/c for mobility at baseline. Stand pivot transfers in/out of w/c ind. She is able to amb short distances such as using her counter for support amb in/out of the bathroom at home. Declines using a walker with gait today. Pt able to demo ind pivot transfers in/out of w/c Ind. Discussed adaptations to home environment and the benefits of walker for short distance mobility. Pt not interested in a walker at this time. Expect pt to d/c home later today with spouse assist prn. D/C PT.
--- NOTE | 2025-01-14 11:26 | PC.NURSE ---
Shift Summary: Patient pleasant and cooperative. Up SBA, verbalizes that her current mobility is her baseline. Vitals stable and WNL, o2 sat >89% on RA. IV removed with catheter intact. Poor appetite, patient states she hasn't had one since becoming ill. Discharged @ 1123 using own electric wheelchair, present to drive home.
== END 2025-01-14 11:23 | disposition home or self-care (01) | DRG 193 ==
LOC: ED 18:37 → MEDSURG 19:47
PROVIDERS: Admitting Provider Family Medicine; Emergency Provider Emergency Medicine; Visit Provider Family Medicine
DX: J10.1 Influenza due to other identified influenza virus with other respiratory manifestations (principal); J96.01 Acute respiratory failure with hypoxia; J44.0 Chronic obstructive pulmonary disease with (acute) lower respiratory infection; J44.1 Chronic obstructive pulmonary disease with (acute) exacerbation; Z68.42 Body mass index [BMI] 45.0-49.9, adult; J10.00 Influenza due to other identified influenza virus with unspecified type of pneumonia; J18.9 Pneumonia, unspecified organism; G47.33 Obstructive sleep apnea (adult) (pediatric); F17.210 Nicotine dependence, cigarettes, uncomplicated; E66.9 Obesity, unspecified; E11.9 Type 2 diabetes mellitus without complications; Z79.84 Long term (current) use of oral hypoglycemic drugs; Z79.85 Long-term (current) use of injectable non-insulin antidiabetic drugs; I25.10 Atherosclerotic heart disease of native coronary artery without angina pectoris; M79.7 Fibromyalgia
CPT/HCPCS: 36415; 71046; 80048; 80053; 82803; 82962; 83036; 84145; 84484; 85025; 87040; 87081; 87631; 94640; 94761; 97165; 99284; 99285; A9270; J2405; J7030; J7512

== ENCOUNTER 2025-01-27 13:53 | Outpatient (CLI) | payer MEDICARE, OTHER, SELFPAY | END 2025-01-27 13:54 | disposition home or self-care (01) | LOC: CT 13:55 | PROVIDERS: PCP Physician Assistant Medical; Visit Provider Physician Assistant Medical | DX: R10.32 Left lower quadrant pain (principal); R16.0 Hepatomegaly, not elsewhere classified; I77.811 Abdominal aortic ectasia | CPT/HCPCS: 74176 ==

== ENCOUNTER 2025-02-11 12:48 | Outpatient (CLI) | payer MEDICARE, OTHER, SELFPAY ==
--- NOTE | 2025-02-11 13:00 | CRLHL7_ITS ---
For Patients: As a result of the Century Cures Act, medical imaging exams and procedure reports are released immediately into your electronic medical record. You may view this report before your referring provider. If you have questions, please contact your health care provider. INDICATION: Follow-up liver lesion TECHNIQUE: 1.5 T MRI of the abdomen performed with pre and postcontrast T1 weighted imaging; T2 weighted imaging; diffusion weighted imaging. 26 mL Dotarem IV COMPARISON: CT abdomen and pelvis 01/27/2025 and 08/03/2024 FINDINGS: Lungs: The lung bases are clear. No pleural or pericardial effusion. Liver: Homogeneous liver parenchyma. No hepatic masses. Borderline hepatomegaly measuring 21 cm in craniocaudal dimension. Mostly diffuse hepatic steatosis, there may be some geographic regions of subtle heterogeneous fat distribution involving the right hepatic lobe (7/19). Biliary tree and gallbladder: No intra or extrahepatic biliary dilation. Fluid-filled gallbladder without stones. Spleen: Unremarkable Pancreas: Fatty atrophy of the pancreatic parenchyma. No pancreatic masses. No pancreatic duct dilation. Adrenal glands: Unremarkable. Kidneys and ureters: No renal masses or hydronephrosis. GI tract: No evidence of obstruction or inflammation. Vasculature: The IVC and aorta are patent. Similar borderline ectasia of the infrarenal abdominal aorta measuring 2.8 cm. Moderate atherosclerotic plaque throughout the abdominal aorta Lymph nodes: No lymphadenopathy. Abdominal wall: Similar left breast spiculated nodule measuring 1.5 cm Bones: Degenerative change of the imaged spine. IMPRESSION: 1. Mostly diffuse hepatic steatosis and hepatomegaly. There may be some geographic regions of subtle heterogeneous fat distribution involving the right hepatic lobe, possibly correlating with the abnormality seen on prior CT. No discrete hepatic mass is appreciated. 2. Similar left breast spiculated nodule. Please correlate with dedicated breast imaging if not already performed. 3. Similar borderline ectasia of the infrarenal abdominal aorta. Dictated by Theresa Griffin MD @ 02/12/2025 10:28:45 AM (Electronically Signed)
== END 2025-02-11 12:49 | disposition home or self-care (01) ==
LOC: MRI 12:51
PROVIDERS: PCP Physician Assistant Medical; Visit Provider Physician Assistant Medical
DX: R16.0 Hepatomegaly, not elsewhere classified (principal); K76.0 Fatty (change of) liver, not elsewhere classified; N63.20 Unspecified lump in the left breast, unspecified quadrant
CPT/HCPCS: 74183; A9575

== ENCOUNTER 2025-04-05 10:42 | Outpatient (CLI) | payer MEDICARE, OTHER, SELFPAY ==
--- NOTE | 2025-04-05 10:45 | CRLHL7_ITS ---
For Patients: As a result of the Cures Act, medical imaging exams and procedure reports are released immediately into your electronic medical record. You may view this report before your referring provider. If you have questions, please contact your health care provider. DIGITAL DIAGNOSTIC BILATERAL MAMMGORAM USING TOMOSYNTHESIS AND COMPUTER-AIDED DETECTION LEFT BREAST ULTRASOUND CLINICAL HISTORY: LEFT breast mass/asymmetry on prior CT/MRI. COMPARISON: MRI abdomen 02/11/2025, 01/27/2025, mammogram studies 04/15/2024, 10/10/2022, 03/09/2021. TECHNIQUE: Digital BILATERAL mammogram in four projections with computer-aided detection. Tomosynthesis was used in this interpretation. Real-time ultrasound imaging of LEFT breast with imaging documentation. BREAST COMPOSITION: There are scattered areas of fibroglandular density. FINDINGS: 3D CC/MLO BILATERAL mammogram images submitted. Posttreatment changes LEFT breast including LEFT lumpectomy, not significantly changed since most recent mammogram. Benign calcifications are present on the LEFT. No suspicious masses. No adenopathy. Targeted LEFT breast ultrasound performed in the lateral LEFT breast corresponding to the CT/MRI demonstrates expected scar tissue from lumpectomy at 3 o`clock 2 cm from the nipple. No suspicious findings. IMPRESSION: Benign postop changes of lumpectomy LEFT breast. No suspicious findings. RECOMMENDATIONS: Routine screening mammography. A lay language report of this examination will be provided to the patient. BI-RADS Category 2: Benign Dictated by Edil Lofton MD @ 04/05/2025 1:32:03 PM jj/Dictated by: Edil Lofton MD @ 04/05/2025 1:32:00 PM (Electronically Signed)
--- NOTE | 2025-04-05 11:15 | CRLHL7_ITS ---
For Patients: As a result of the Cures Act, medical imaging exams and procedure reports are released immediately into your electronic medical record. You may view this report before your referring provider. If you have questions, please contact your health care provider. SEE DIGITAL DIAGNOSTIC BILATERAL MAMMOGRAM PERFORMED SAME DAY CRL:[email or web address]/Dictated by: Edil Lofton MD @ 04/05/2025 1:32:00 PM (Electronically Signed)
== END 2025-04-05 10:43 | disposition home or self-care (01) ==
LOC: MAMMO 10:43
PROVIDERS: PCP Physician Assistant Medical; Visit Provider Surgery
DX: N63.20 Unspecified lump in the left breast, unspecified quadrant (principal); Z85.3 Personal history of malignant neoplasm of breast
CPT/HCPCS: 76642; 77066; G0279

== ENCOUNTER 2025-04-20 13:52 | Outpatient (CLI) | payer MEDICARE, OTHER, SELFPAY | END 2025-04-20 13:53 | disposition home or self-care (01) | LOC: NFLDREF 04-28 01:34 | PROVIDERS: PCP Physician Assistant Medical; Visit Provider Physician Assistant Medical | DX: E11.65 Type 2 diabetes mellitus with hyperglycemia (principal); E78.2 Mixed hyperlipidemia; F41.8 Other specified anxiety disorders; Z79.84 Long term (current) use of oral hypoglycemic drugs | CPT/HCPCS: 80053; 80061; 82043; 82570; 84443 ==

== ENCOUNTER 2025-05-11 14:00 | Outpatient (RCR) | payer MEDICARE, OTHER, SELFPAY ==
--- NOTE | 2025-05-06 11:25 | PT.OPE ---
PT [facility] PT [facility] Eval Start: 05/04/25 15:40 Freq: Status: Active Protocol: Document 05/04/25 15:40 BENOIT (Rec: 05/04/25 15:42 BENOIT [id number]) E-signed By Taye Petty DPT, MS Physical Therapy Outpatient Evaluation Insurance Information Recert Due Date 08/02/25 Insurance Name Medicare B Medical Diagnosis Pain in left shoulder; other chronic pain Treating Diagnosis Decreased L shoulder ROM and flexibility, L rotator cuff impingement, L UE weakness and decreased endurance Subjective Preferred Name Susy Gomez Pt is a L-hand dominant 64 y.o. female who presents to PT with c/o chronic severe L shoulder pain of insidious origin over the past several years. Attributes sxs to years of use of her L UE with work, yard and household activities with gradual onset of sxs. Describes sxs as a sharp pinch across her anterior and lateral shoulder with lifting, reaching, dressing and personal grooming activities. Occasional shooting pain down her L hand to her 4th and 5th digits with use. Also describes chronic L carpal tunnel sxs. Pt is W/C bound in a power W/C and believes frequent pushing up from her W/C combined with having to lift and reach away from her have contributed to sxs. L shoulder blade is highly sensitive to any pressure and pt requests no MT. Complex PMH of DM-II, fibromyalgia, LS OA, LE meralgia paresthetica and COPD. AGGR factors: lifting and reaching, dressing and grooming activities, sleeping, household cleaning. ALLEV factors: rest, ice. Pt hopes to decrease pain levels to improve heriberto to household cleaning and all daily activities requiring L UE use. Pain Comments 3-06/10 Current Work Status Retired Precautions Treatment Pt W/C bound Precautions/ Contraindications Therapy Limitations/ Not Limited Systems Review Objective Functional Test Quick DASH: 68% Performed & Score Assessment Assessment/ Pt displays signs and symptoms consistent with L RC Impression impingement with signs and symptoms consistent with dx of L RC syndrome. + L shoulder impingement, LH of biceps, SS and IS testing. Significant L UE weakness found with testing. No signs or symptoms of a full RC tear with pt displaying 125 deg shoulder flex with a painful arc and impingement at end AROM. Pt responded well to stretching and strengthening exercises with fatigue following today?s session. She will benefit from continued skilled therapy to address these limitations if she has a recurrence of sxs. Primary Functional Lifting and reaching, dressing and grooming activities, Limitations sleeping, household cleaning Plan of Care Rehabilitation Good Potential Rehabilitation Due to chronic nature of sxs and PMH Potential Comments Physical Therapy Short-term goals to be completed in 4 weeks: Goals 1.Pt will display improved L shoulder AROM >145 deg with pain levels <3/10 to reach into overhead cabinets, and to perform dressing and grooming activities. 2.Pt will report improved quality of sleep waking <2x per night due to R shoulder pain for >2 consecutive nights. Long-term goals to be completed in 10 weeks: 1.Pt will be independent and compliant with HEP for half-way sx management 2.Pt will display increased L ER, IR, low and mid trap strength >/= 4+/5 to perform lifting duties at work. 3. Pt will be able to perform all household cleaning and daily activities without L UE pain to improve tolerance to functional daily activities. 4. Pt will report >50% improvement in quick DASH questionnaire to significantly improve heriberto to daily activities. Coordination/ Referral Source Communication With Treatment Plan/ Joint Mobilization,Manual Therapy,Therapeutic Exercises Direct Interventions Frequency/Duration 1x per week for 6-10 visits, decreasing visit frequency as able. Patient Will Be Completion of LTG(s),Skills Plateau,Independent w/HEP, Discharged From Independently Progressing Therapy Evaluation Billing Untimed Code 24 Treatment Minutes Complexity Moderate Certification Information Initial 05/04/25 Certification Date Ending Certification 08/02/25 Date Provider Signature Yes Required Provider Signature POC & Medical Necessity Shows Agreement With Physician NPI Number Write NPI# Here Physician Comment/ : Change Physician Signature Please Sign/Date Here & Date Requested
== END 2025-09-08 23:59 | disposition home or self-care (01) ==
PROVIDERS: PCP Physician Assistant Medical; Visit Provider Physician Assistant Medical
DX: M25.512 Pain in left shoulder (principal); G89.29 Other chronic pain; Z51.89 Encounter for other specified aftercare
CPT/HCPCS: 97110; 97162

== ENCOUNTER 2025-10-14 12:57 | Outpatient (CLI) | payer MEDICARE, OTHER, SELFPAY ==
--- NOTE | 2025-10-14 13:00 | CRLHL7_ITS ---
For Patients: As a result of the Century Cures Act, medical imaging exams and procedure reports are released immediately into your electronic medical record. You may view this report before your referring provider. If you have questions, please contact your health care provider. DXA BONE MINERAL DENSITY STUDY Reason for exam: Asymptomatic menopausal state. Current height (in): 62. Weight (lb): 250. Menopause age: 55. Ethnicity: White. 1. Have you had a previous hip or vertebral fracture? No. 2. Have you had any fractures during your adult life which did not result from significant trauma (e.g., auto accident)? No. 3. Did either of your parents have a hip fracture? No. 4. Do you smoke? Yes. 5. Have you ever taken Glucocorticoids? Yes. 6. Do you have rheumatoid arthritis? No. 7. Do you have secondary osteoporosis? No. 8. Do you drink 3 or more alcoholic drinks per day? No. 9. Are you being treated for osteoporosis? No. 10. Have you ever taken any of the following medications: Actonel, Evista, Fosamax, Miacalcin, Reclast, Boniva, Forteo, HRT (i.e. estrogen/hormone therapy), Protelos, Prolia, Vitamin D, Calcium, other ??? please specify. ANSWER: Yes, Vitamin D and Calcium. 11. Do you have any of the following medical conditions: Anorexia or bulimia, asthma or emphysema, end stage renal disease, hyperparathyroidism, any seizure disorders, cancer, inflammatory bowel diseases, hysterectomy, other ??? please specify. ANSWER: Yes, Asthma or Emphysema. 12. What was your maximum height (inches)? 63. 13. Do you perform weight bearing exercise regularly? No. 14. Do you regularly consume dairy products? Yes. 15. Do you drink caffeinated beverages? Yes. 16. At what age did your period start? 12. 17. Are you premenopausal? No. 18. How many full-term pregnancies have you had? 2. 19. Have you ever missed your period for more than 6 months in a row (not including or menopause)? No. TECHNIQUE: Bone mineral density study was performed using the Ma[employer]. FINDINGS: The results of the study expressed as bone mineral density (BMD) are as follows: Lumbar spine L1 to L4: BMD: 1.187 g/cm2. T-score: 1.3. Z-score: 3.1. Neck Left: BMD: 0.575 g/cm2. T-score: -2.5. Z-score: -0.9. Right: BMD: 0.585 g/cm2. T-score: -2.4. Z-score: -0.8. Total Left: BMD: 0.925 g/cm2. T-score: -0.1. Z-score: 1.1. Right: BMD: 0.913 g/cm2. T-score: -0.2. Z-score: 1.0. IMPRESSION: Osteoporosis. *Comparison exams done prior to 05/2020 were performed on different unit, [employer]. FRAX is not reported because this patient`s T-score meets the World Health Organization (WHO) criteria for osteoporosis. Virginie Lloyd M.D. Body/Diagnostic Radiologist [email or web address] ABIDA/[email or web address]/Dictated by: Virginie Lloyd MD @ 10/15/2025 4:50:00 AM (Electronically Signed)
== END 2025-10-14 12:58 | disposition home or self-care (01) ==
LOC: RAD 12:59
PROVIDERS: PCP Physician Assistant Medical; Visit Provider Physician Assistant Medical
DX: Z13.820 Encounter for screening for osteoporosis (principal); Z78.0 Asymptomatic menopausal state
CPT/HCPCS: 77080